=== PATIENT | female | born 1985 | race Caucasian/White ===

== ENCOUNTER 2017-09-22 09:35 | Outpatient (RCR) | payer OTHER, SELFPAY | END 2017-10-04 23:59 | LOC: NS 09:35 | PROVIDERS: Visit Provider Obstetrics & Gynecology | DX: O99.211 Obesity complicating pregnancy, first trimester (principal); Z68.41 Body mass index [BMI] 40.0-44.9, adult; Z71.3 Dietary counseling and surveillance | CPT/HCPCS: 97802 ==

== ENCOUNTER → 2017-10-02 14:24 | Outpatient (CLI) | payer OTHER, SELFPAY ==
[2017-10-02 15:57] LABS: Color, Urine Yellow (Yellow); Glucose, Dipstick Normal (Normal); Ketone-Dipstick 50 mg/dl (Negative); Leukocyte Esterase-Dipstick Negative /ul (Negative); Nitrite-Dipstick Negative (Negative); Occult Blood-Urine Negative /ul (Negative); Protein-Dipstick Negative (Negative); Specific Gravity, Urine 1.025 (1.002-1.030); Urine Bilirubin Dipstick Negative (Negative); Urine Clarity Clear (Clear); Urine Urobilinogen Normal (Normal)
[2017-10-02 15:59] LABS: Absolute Lymphocyte Count 1.17 X10^3/ul (0.83-4.51); Absolute Neutrophil Count 3.8 X10^3/uL (2.0-7.7); Basophil# 0.01 X10^3/uL; Basophil% 0.2 % (0-1); Eosinophil# 0.16 X10^3/uL; Eosinophils% 2.9 % (0-5); Hematocrit 41.3 % (37-47); Hemoglobin 13.7 g/dl (12.0-15.0); Lymphocyte # 1.17 X10^3/ul (4.0); Lymphocyte % 21.2 % (19-41); Mean Corp Hgb Conc 33.2 g/gl (32-36); Mean Corpuscular Hgb 30.3 pg (27.0-32.0); Mean Corpuscular Volume 91.4 fL (81-99); Mean Platelet Vol. 10.1 fl (6.2-12.0); Monocyte# 0.36 X10^3/uL; Monocyte% 6.5 % (0-10); Neutrophil # 3.82 X10^3/uL (2.7-7.7); Platelet Count 311 K/mm3 (150-450); RBC Distribution Width CV 13.1 % (11.6-14.6); Red Blood Count 4.52 M/mm3 (4.2-5.4); White Blood Count 5.5 K/mm3 (4.4-11.0)
[2017-10-02 16:03] LABS: POSITIVE COUNT NO; POSITIVE DIFFERENTIAL NO; POSITIVE MORPHOLOGY NO
[2017-10-02 16:20] LABS: Thyroid Stim Hormone (TSH) 1.38 uIU/mL (0.358-3.74)
[2017-10-02 17:02] LABS: HIV - WCH Non-Reactive (Nonreactive); Rubella IgG 19.7 IU/mL
[2017-10-04 07:47] LABS: HEPATITIS B SURFACE AG Negative (Negative); Hep C Antibodies 0.1 s/co ratio (0.0-0.9)
[2017-10-06 03:55] LABS: Prenatal RPR NONREACTIVE (NONREACTIVE)
== END ==
PROVIDERS: Visit Provider Obstetrics & Gynecology
DX: Z34.81 Encounter for supervision of other normal pregnancy, first trimester (principal); Z3A.00 Weeks of gestation of pregnancy not specified
CPT/HCPCS: 36415; 81002; 83036; 84443; 85025; 86703; 86762; 86803; 87340

== ENCOUNTER 2017-10-20 10:32 | Outpatient (RCR) | payer OTHER, SELFPAY | END 2017-11-01 23:59 | LOC: NS 10:32 | PROVIDERS: Visit Provider Obstetrics & Gynecology | DX: O99.211 Obesity complicating pregnancy, first trimester (principal); Z68.41 Body mass index [BMI] 40.0-44.9, adult; Z71.3 Dietary counseling and surveillance | CPT/HCPCS: 97803 ==

== ENCOUNTER → 2017-11-06 10:49 | Outpatient (CLI) | payer OTHER, SELFPAY | PROVIDERS: Visit Provider Obstetrics & Gynecology | DX: Z34.82 Encounter for supervision of other normal pregnancy, second trimester (principal); Z3A.00 Weeks of gestation of pregnancy not specified | CPT/HCPCS: 36415 ==

== ENCOUNTER → 2018-01-08 14:17 | Outpatient (CLI) | payer OTHER, SELFPAY ==
[2018-01-08 15:50] LABS: Glucose Challenge Gest 1H 50g 125 mg/dL (70-140)
[2018-01-08 15:52] LABS: Hematocrit 37.4 % (37-47); Hemoglobin 12.7 g/dl (12.0-15.0); Mean Corpuscular Volume 88.4 fL (81-99); Mean Platelet Vol. 10.2 fl (6.2-12.0); Platelet Count 311 K/mm3 (150-450); RBC Distribution Width CV 13.2 % (11.6-14.6); RBC Distribution Width SD 42.3 fl (35.1-43.9); Red Blood Count 4.23 M/mm3 (4.2-5.4); White Blood Count 6.8 K/mm3 (4.4-11.0)
[2018-01-08 16:03] LABS: Scan Indicated on CBC? Y/N NO
== END ==
PROVIDERS: Visit Provider Obstetrics & Gynecology
DX: Z34.82 Encounter for supervision of other normal pregnancy, second trimester (principal)
CPT/HCPCS: 36415; 82950; 85027

== ENCOUNTER → 2018-03-26 15:53 | Outpatient (CLI) | payer OTHER, SELFPAY ==
[2018-03-26 17:26] LABS: Protein, Urine (Random) 29.5 mg/dL (<11.9); Protein:Creat Ratio 116 mg/g CRE (0-200)
== END ==
PROVIDERS: Visit Provider Obstetrics & Gynecology
DX: Z34.83 Encounter for supervision of other normal pregnancy, third trimester (principal)
CPT/HCPCS: 82570; 84156

== ENCOUNTER → 2018-04-17 16:15 | Outpatient (CLI) | payer OTHER, SELFPAY ==
[2018-04-17 16:30] LABS: Hematocrit 37.2 % (37-47); Hemoglobin 12.4 g/dl (12.0-15.0); Mean Corp Hgb Conc 33.3 g/gl (32-36); Mean Corpuscular Hgb 29.5 pg (27.0-32.0); Mean Corpuscular Volume 88.6 fL (81-99); Platelet Count 282 K/mm3 (150-450); RBC Distribution Width CV 14.5 % (11.6-14.6); RBC Distribution Width SD 46.8 fl (35.1-43.9); White Blood Count 6.8 K/mm3 (4.4-11.0)
[2018-04-17 16:33] LABS: Scan Indicated on CBC? Y/N NO
[2018-04-17 16:35] LABS: Color, Urine Yellow (Yellow); Glucose, Dipstick Normal (Normal); Ketone-Dipstick 5 mg/dl (Negative); Leukocyte Esterase-Dipstick Negative /ul (Negative); Nitrite-Dipstick Negative (Negative); Occult Blood-Urine Negative /ul (Negative); Protein-Dipstick 30 mg/dl (Negative); Specific Gravity, Urine 1.015 (1.002-1.030); Urine Bilirubin Dipstick Negative (Negative); Urine Clarity Clear (Clear); Urine Urobilinogen Normal (Normal); Urine pH 6.5 (5.0 - 8.0)
[2018-04-17 16:46] LABS: AST(SGOT) 59 U/L (15-37); Alanine Aminotransfer ALT/SGPT 41 U/L (13-56); Albumin, Serum 2.3 g/dL (3.2-5.0); Alkaline Phosphatase 224 U/L (45-117); Bilirubin, Direct 0.07 mg/dL (0.00-0.30); Creatinine, Serum 0.58 mg/dL (0.55-1.02); EST Glomerular Filtration Rate 125 mL/min (>60); Est Glom Filt Rate - Afr Amer 151 mL/min (>60); Globulin 4.2 g/dL (2.2-4.2); Protein, Total 6.5 g/dL (6.4-8.2)
[2018-04-17 16:53] LABS: Protein, Urine (Random) 21.2 mg/dL (<11.9); Protein:Creat Ratio 186 mg/g CRE (0-200)
== END ==
PROVIDERS: Visit Provider Obstetrics & Gynecology
DX: O13.9 Gestational [pregnancy-induced] hypertension without significant proteinuria, unspecified trimester (principal)
CPT/HCPCS: 36415; 80076; 81002; 82565; 82570; 84156; 85027

== ENCOUNTER 2018-04-17 17:06 | Inpatient (IN) | payer OTHER, SELFPAY ==
[2018-04-17] VITALS (27 sets, daily range): BP systolic 102–189; BP diastolic 56–102; PULSE 94–151; RESP 16–20; TEMP 36.7–37.6; O2SAT 95–99; BMI 48.9
--- NOTE | 2018-04-17 17:34 | PCM.DCCSEC ---
Discharge Diet: No Restrictions Discharge Activity: May not drive while taking narcotic pain medications., May Shower, May Take a Tub Bath Return to work on:: 06/04/18 May resume sexual activity in: 4-6 weeks Lifting Restrictions: 20 pounds Additional Activity Instructions:: Nothing in the vagina for 4-6 weeks. You may return to work/school in 6-8 weeks. Change Dressing in (Days):: 4 Remove Dressing in (days):: 4 Cleanse incision/area with: Soap & Water, Keep Dressing Clean & Dry Additional Instructions: If you experience any of the following, contact your healthcare provider. Bleeding that soaks a pad every hour for 2 hours Fever 100.4 or higher Unrelieved incision or abdominal pain Swelling, redness, discharge or bleeding from your incision Problems urinating (including inability to urinate or burning while urinating). Visual changes Severe headache Flu-like symptoms Pain or redness in one of both of your breasts Pain, warmth, tenderness or swelling in your legs, especially the calf area Frequent nausea and vomiting Symptoms of depression or anxiety If you experience any of the following, call 911 or go to the nearest Emergency Room. Chest pain Problems breathing Seizure activity Partial or complete paralysis of a body part, slurred speech, weakness or drooping of the face, or a sudden inability to walk or hold your balance Allergies/Adverse Reactions: Allergies bacitracin [From Neosporin ([id number])] Allergy (Verified 04/17/18 16:14) Hives neomycin [From Neosporin ([id number])] Allergy (Verified 04/17/18 16:14) Hives polymyxin B [From Neosporin ([id number])] Allergy (Verified 04/17/18 16:14) Hives Medications to take at Discharge Hydrocodone Bitart/Apap 5-325 [[place] 5/325] 1 - 2 tablet PO Q4H PRN PRN #20 tablet 08/08/16 Metformin HCl 08/08/16 Naproxen [Naprosyn] 500 mg PO BID #20 tablet 08/08/16 Smz/Tmp Ds [Bactrim Ds] 1 tablet PO BID #6 tablet 08/08/16 Tamsulosin HCl [Flomax] 0.4 mg PO DAILY #1 capsule 08/08/16 Cetirizine HCl [Zyrtec] 10 mg PO 04/17/18 Docusate Sodium [Colace] 100 mg PO BID #30 cap 04/17/18 Naproxen [Naprosyn] 250 - 500 mg PO TID PRN #30 tab 04/17/18 Omeprazole 04/17/18 Oxycodone [Oxyir] 5 - 10 mg PO Q6H PRN PRN 7 Days #20 tablet 04/17/18 Vit No.130/Iron/FA [ Vitamins] 1 each PO 04/17/18 Ranitidine 04/17/18 The following prescriptions were given: Oxycodone [Oxyir] 5 - 10 mg PO Q6H PRN PRN 7 Days #20 tablet PRN Reason: Mod-Severe Pain (4-10) Docusate Sodium [Colace] 100 mg PO BID #30 cap Naproxen [Naprosyn] 250 - 500 mg PO TID PRN #30 tab PRN Reason: Mild-Mod Pain (1-01/11) Follow-Up: Call to make an appointment with your doctor for an incision check in 1-2 weeks. You will also need a 6 week post- follow up appointment. Test results from this visit will be discussed in further detail at your follow-up appointment, if applicable. Please Follow Up With: Chrissie Galan MD - [phone] When: Call to make an appointment for an incision check in 2 weeks. Primary Care Physician: Care Physician,No Primary [Primary Care Provider] - Proposed Discharge Date: 04/20/18
--- NOTE | 2018-04-17 17:39 | DCINST_ITS ---
Discharge Diet: No Restrictions Discharge Activity: May not drive while taking narcotic pain medications., May Shower, May Take a Tub Bath Return to work on:: 06/04/18 May resume sexual activity in: 4-6 weeks Lifting Restrictions: 20 pounds Additional Activity Instructions:: Nothing in the vagina for 4-6 weeks. You may return to work/school in 6-8 weeks. Change Dressing in (Days):: 4 Remove Dressing in (days):: 4 Cleanse incision/area with: Soap & Water, Keep Dressing Clean & Dry Additional Instructions: If you experience any of the following, contact your healthcare provider. * Bleeding that soaks a pad every hour for 2 hours * Fever 100.4 or higher * Unrelieved incision or abdominal pain * Swelling, redness, discharge or bleeding from your incision * Problems urinating (including inability to urinate or burning while urinating) . * Visual changes * Severe headache * Flu-like symptoms * Pain or redness in one of both of your breasts * Pain, warmth, tenderness or swelling in your legs, especially the calf area * Frequent nausea and vomiting * Symptoms of depression or anxiety If you experience any of the following, call 911 or go to the nearest Emergency Room. * Chest pain * Problems breathing * Seizure activity * Partial or complete paralysis of a body part, slurred speech, weakness or drooping of the face, or a sudden inability to walk or hold your balance Allergies/Adverse Reactions: Allergies bacitracin [From Neosporin ([id number])] Allergy (Verified 04/17/18 16:14) Hives neomycin [From Neosporin ([id number]-[id number])] Allergy (Verified 04/17/18 16:14) Hives polymyxin B [From Neosporin ([id number]-kmf-[id number])] Allergy (Verified 04/17/18 16:14) Hives Medications to take at Discharge Hydrocodone Bitart/Apap 5-325 [[place] 5/325] 1 - 2 tablet PO Q4H PRN PRN #20 tablet 08/08/16 Metformin HCl 08/08/16 Naproxen [Naprosyn] 500 mg PO BID #20 tablet 08/08/16 Smz/Tmp Ds [Bactrim Ds] 1 tablet PO BID #6 tablet 08/08/16 Tamsulosin HCl [Flomax] 0.4 mg PO DAILY #1 capsule 08/08/16 Cetirizine HCl [Zyrtec] 10 mg PO 04/17/18 Docusate Sodium [Colace] 100 mg PO BID #30 cap 04/17/18 Naproxen [Naprosyn] 250 - 500 mg PO TID PRN #30 tab 04/17/18 Omeprazole 04/17/18 Oxycodone [Oxyir] 5 - 10 mg PO Q6H PRN PRN 7 Days #20 tablet 04/17/18 Vit No.130/Iron/FA [ Vitamins] 1 each PO 04/17/18 Ranitidine 04/17/18 The following prescriptions were given: Oxycodone [Oxyir] 5 - 10 mg PO Q6H PRN PRN 7 Days #20 tablet PRN Reason: Mod-Severe Pain (4-06/13) Docusate Sodium [Colace] 100 mg PO BID #30 cap Naproxen [Naprosyn] 250 - 500 mg PO TID PRN #30 tab PRN Reason: Mild-Mod Pain (1-01/11) Follow-Up: Call to make an appointment with your doctor for an incision check in 1-2 weeks. You will also need a 6 week post- follow up appointment. Test results from this visit will be discussed in further detail at your follow- up appointment, if applicable. Please Follow Up With: Chrissie Galan MD - [phone] When: Call to make an appointment for an incision check in 2 weeks. Primary Care Physician: Care Physician,No Primary [Primary Care Provider] - Proposed Discharge Date: 04/20/18
[2018-04-17 17:49] LABS: Absolute Lymphocyte Count 1.21 X10^3/ul (0.83-4.51); Absolute Neutrophil Count 4.5 X10^3/uL (2.0-7.7); Basophil# 0.01 X10^3/uL; Basophil% 0.2 % (0-1); Eosinophil# 0.11 X10^3/uL; Eosinophils% 1.7 % (0-5); Hematocrit 38.1 % (37-47); Hemoglobin 12.9 g/dl (12.0-15.0); Lymphocyte # 1.21 X10^3/ul (4.0); Lymphocyte % 18.6 % (19-41); Mean Corp Hgb Conc 33.9 g/gl (32-36); Mean Corpuscular Hgb 29.7 pg (27.0-32.0); Mean Corpuscular Volume 87.8 fL (81-99); Mean Platelet Vol. 10.4 fl (6.2-12.0); Monocyte# 0.69 X10^3/uL; Monocyte% 10.6 % (0-10); Neutrophil # 4.49 X10^3/uL (2.7-7.7); Neutrophil % 68.9 % (47-70); Platelet Count 315 K/mm3 (150-450); RBC Distribution Width CV 14.5 % (11.6-14.6); RBC Distribution Width SD 46.6 fl (35.1-43.9); Red Blood Count 4.34 M/mm3 (4.2-5.4); White Blood Count 6.5 K/mm3 (4.4-11.0)
[2018-04-17 17:52] LABS: POSITIVE COUNT NO; POSITIVE DIFFERENTIAL NO; POSITIVE MORPHOLOGY NO
[2018-04-17] MEDS: Lactated Ringers 1,000 ML 150 ML IV (17:58)
[2018-04-17] MEDS: Sodium Citrate/Citric Acid 30 ML UDC PO (17:58)
[2018-04-17] MEDS: Cefazolin 2 GM in 0.9% Normal Saline 100 ML IV (18:08)
[2018-04-17] MEDS: Oxytocin 30 units/NS 500 ml 30 UNITS/500 ML IV.SOLN 167 UNITS IV ×2 (18:39→22:50)
[2018-04-17] MEDS: Ketorolac 30 MG/ML Syringe IV (19:09)
--- NOTE | 2018-04-17 19:11 | OP.PCM_ITS ---
Operative Report Date of Procedure: 04/17/18 PROCEDURE: Repeat C section. Preoperative diagnosis: 38 2/7 wk EGA Prior C section, planned repeat C section PIH with worsening blood pressures Postop diagnosis: 38 2/7 wk EGA Prior C section, planned repeat C section PIH with worsening blood pressures. Anesthesia: Spinal, Fab Camejo MD and Lake Price MD Surgeon: Chrissie Galan MD [employer] Consultant: JACLYN Torres EBL 800 cc Complications: none Drains: Rice draining clear yellow appearing urine Fluids: replacement LR Findings: At amniotomy, clear fluid was noted. Henriquez viable male in vertex presentation. Apgars 9/9, Baby weight: 7# 6 oz There was a normal appearing uterus, fallopian tubes and ovaries bilaterally. There were minimal filmy adhesions between the bladder and lower uterine segment. PATH: Routine cord blood for typing collected. Routine cord gases were sent. Narrative account: After the risks, benefits and alternatives of the procedure were reviewed with the patient, informed consent was obtained. The patient was taken to the Operating room with an IV running, and placed in a seated position on the operating table for placement of the spinal. Once the spinal had been administered, she was briefly frog-legged for Rice catheter placement, and then repositioned to dorsal supine position with leftward displacement of the uterus, and prepped and draped in the usual sterile fashion. Once the spinal was deemed adequate, a Pfannenstiel skin incision was created using the knife ( through the prior skin incision scar). The incision was carried down to the rectus fascia using the knife. The fascia was nicked in the midline. The fascial incision was extended bilaterally using curved Torres scissors. The superior aspect of the fascial incision was grasped with Jose clamps and tented up and the underlying rectus abdominal muscles were dissected free. In a similar manner, the inferior aspect of the facial incision was grasped with Jose clamps tented up and the underlying rectus abdominal muscles were dissected free. The rectus abdominis muscles were in the midline and the peritoneum was identified and entered by blunt dissection high in the incision. The peritoneum was stretched laterally and a bladder blade was inserted. A bladder flap was created along the lower uterine segment with Metzenbaum scissors . The uterine incision was then created using Metzenbaum scissors. The operators fingertips were used to extend the uterine incision by blunt dissection in a caudad- cephalad orientation . Clear fluid was noted at amniotomy. The vertex was then delivered atraumatically through the incision. The OP and nares were bulb suctioned on the abdomen. The shoulders delivered easily . The cord clamped x two and cut. And the infant was handed off to the nurse awaiting delivery after briefly showing him to his parents. The baby had a spontaneous, vigorous cry. The placenta was then delivered. The uterus was exteriorized and cleared of clots and debris . The uterine incision was repaired with 1 Vicryl in a running locked fashion. A second imbricating layer was then placed, using 1 Monocryl in running nonlocked fashion. Bovie cautery was used to treat any bleeding areas . Excellent hemostasis was noted. At this point the uterus was returned to the abdominal cavity. The gutters were cleared of clots and debris and the incision at the uterus was inspected. Kalpana was applied along the entire incision for continued hemostasis. Excellent hemostasis was noted. The peritoneal edges were reapproximated in the midline with a continuous suture of 1 Vicryl. Kalpana was applied to this layer. Excellent hemostasis was noted at the subfascial space Kalpana was dusted over this layer as well. The fascia was closed in a running nonlocked fashion with a Stratofix. The Subcutaneous fatty tissue was Bovie cauterized as needed for hemostasis. Kalpana was liberally dusted at this layer to prevent seroma formation. This layer was then reapproximated in a two layer closure of running 3-0 Vicryl to eliminate space. The skin edges were closed in a Subcuticular stitch of 4-0 Monocryl. The incision was cleansed. Cavilon, Steristrips, and Mepilex dressing were applied to the skin . The patient was then transferred to the recovery room bed in stable condition after tolerating the procedure well. Sponge, lap, needle and instrument counts correct times two. Medications given preop and intraoperatively included: Ancef given area field person to the operating room. The patient also received Pitocin given IV after cord clamp , and Toradol 30 mg IV times one. For a complete listing of medications given preop and intraoperatively, please see the anesthesia record.
[2018-04-17] MEDS: Lactated Ringers 1,000 ML 100 ML IV ×2 (19:32→23:50)
--- NOTE | 2018-04-17 21:05 | PCM.PN.BLA ---
Progress Note Postop check. Multiple family members in room. Johana holding baby. AVSS BPs mostly 130-140/80s. Urine clear yellow, esther comfortable. NAD Conversant Fundus firm per RN. Several small clots passed and will monitor. A/P: PIH. BPs improved since delivery Continue care. Add LFTs to AM lab draw as AST elevated preop today. All other PIH labs WNL Continue care.
[2018-04-17] MEDS: Carboprost Tromethamine 250 MCG/ML Ampul IM (21:15)
--- NOTE | 2018-04-17 21:18 | NURSING ---
Dr Galan at bedside to evaluate bleeding at this time. Hemabate given at 2115 IM in right thigh.
--- NOTE | 2018-04-17 21:21 | NURSING ---
remains at bedside 12 lead EKG ordered and labetalol 20mg iv ordered x1.
[2018-04-17] MEDS: Labetalol 100 MG/20 ML Vial 20 MG IV (21:31)
[2018-04-17] MEDS: proMETHazine 25 MG/ML Syringe 12.5 MG IV (21:37)
[2018-04-17] MEDS: miSOPROStol 200 MCG Tablet 1000 MCG RECTAL (21:49)
[2018-04-17 22:25] LABS: Absolute Neutrophil Count 8.8 X10^3/uL (2.0-7.7); Basophil# 0.01 X10^3/uL; Basophil% 0.1 % (0-1); Eosinophil# 0.12 X10^3/uL; Eosinophils% 1.1 % (0-5); Hematocrit 31.8 % (37-47); Hemoglobin 10.6 g/dl (12.0-15.0); Lymphocyte % 11.8 % (19-41); Mean Corp Hgb Conc 33.3 g/gl (32-36); Mean Corpuscular Hgb 29.5 pg (27.0-32.0); Mean Corpuscular Volume 88.6 fL (81-99); Mean Platelet Vol. 10.2 fl (6.2-12.0); Monocyte# 0.76 X10^3/uL; Monocyte% 6.9 % (0-10); Neutrophil # 8.77 X10^3/uL (2.7-7.7); Neutrophil % 79.9 % (47-70); POSITIVE COUNT NO; POSITIVE DIFFERENTIAL NO; POSITIVE MORPHOLOGY NO; Platelet Count 263 K/mm3 (150-450); RBC Distribution Width CV 14.4 % (11.6-14.6); RBC Distribution Width SD 46.5 fl (35.1-43.9); Red Blood Count 3.59 M/mm3 (4.2-5.4)
--- NOTE | 2018-04-17 22:25 | PCM.PN.BLA ---
Progress Note PROGRESS NOTE Postop check after family out of room. BP high at 169/86 pulse 140-150s A/P: HTN and tachycardia -- EKG ordered. -- Labetolol 20 mg IV x one to be given PROGRESS NOTE / POSTOPERATIVE HEMORRHAGE 2/2 uterine atony. Called back to room with inc vaginal bleeding. Hemabate ordered, given and phenergan for nausea. EKG with current pulse 106 Sinus tachycardia (s/p labetalol 20 mg IV x one). EXAM: Alert, cool cloths on forehead and around neck. Pelvic exam: clots at lower uterine segment. Bedside sono with clot noted at fundus. Fundus firm at approx umbilicus, but with continued bleeding, passing clots. Cytotec 1000 mg CA x one Bimanual exam and bedside curettage to evacuate uterus. Uterine tamponade balloon placed to fundus and 420 cc NS used to inflate under guidance. Additional small clots extruded from lower uterine segment and removed, set aside EBL by weight 2018 cc + 800 EBL in OR = 2818 cc EBL total CBC at 2215- hgb 10.6 g/dl. (dec from 12. g/dl preop) EXAM: VSS very minimal vaginal bleeding noted. Tamponade balloon in place. Johana alert, still comfortable with epidural. Conversant, NAD Pale appearing. A/P: Postoperative hemorrhage due to uterine atony. --s/p Pitocin, Hemabate, Cytotec. S/P bedside banjo curettage. --Uterine tamponade balloon in place. --repeat CBC in am. consider transfusion vs expectant management , iron bid. Continue care. Close observation of bleeding.
[2018-04-17 22:32] LABS: Prothrombin Time (Protime)PT. 12.9 SECONDS (11.7-14.9)
[2018-04-17 22:33] LABS: Partial Thromboplast Time 28.3 Seconds (24.1-36.2)
[2018-04-17 22:41] LABS: ALB/GLOB Ratio 0.5 RATIO (0.9-2.4); AST(SGOT) 52 U/L (15-37); Alanine Aminotransfer ALT/SGPT 35 U/L (13-56); Albumin, Serum 1.8 g/dL (3.2-5.0); Alkaline Phosphatase 169 U/L (45-117); Anion Gap 12 (5-15); BUN 11 mg/dL (7-18); BUN/Creat Ratio 18.9 RATIO (10-20); Calcium,Total 7.6 mg/dL (8.5-10.1); Chloride 116 mmol/L (98-107); Creatinine, Serum 0.58 mg/dL (0.55-1.02); EST Glomerular Filtration Rate 125 mL/min (>60); Est Glom Filt Rate - Afr Amer 151 mL/min (>60); Estimated Creatinine Clearance 121.82 ml/min; Globulin 3.3 g/dL (2.2-4.2); Glucose 101 mg/dL (74-106); Protein, Total 5.1 g/dL (6.4-8.2); Sodium Level 148 mmol/L (136-145)
[2018-04-17 23:11] LABS: Fibrinogen 312 mg/dl (203-444)
[2018-04-18] VITALS (12 sets, daily range): BP systolic 117–140; BP diastolic 67–80; PULSE 100–128; RESP 16–20; TEMP 36.9–37.4; O2SAT 96–100
--- NOTE | 2018-04-18 02:26 | PCM.PN.BLA ---
Progress Note PROGRESS NOTE. ALert Blood drawn for repeat CBC AFEB Pulse 100-112. BP 120-140s/70-86 NAD. States some cramping. Urine output good. Toradol OK EXAM: Minimal blood on peripad. No inc VB into bag from uterine tamponade balloon 120 cc removed from balloon. A/P; repeat C/S Postpatum hemorrhage 2/2 uterine atony. S/P Pitocin, bimanual massage. Hemabate Bedside banjo curettage. cytotec 1000 mcg RI. Uterine balloon. Stable. Reassess later with repeat CBC. Balloon removal as able.
[2018-04-18] MEDS: Ketorolac 30 MG/ML Syringe IV ×4 (02:33→20:43)
--- NOTE | 2018-04-18 02:42 | NURSING ---
Dr. Galan at bedside 0215- 120 cc removed from balloon catheter. VS and bleeding stable. 300 cc remains in balloon catheter. Plan will be per Dr. Galan to return in a couple hours to take more saline out of balloon. Output in page 200 cc in 2 hours- VO per Dr. Galan for toradol at this time.
[2018-04-18 02:48] LABS: Hematocrit 28.6 % (37-47); Hemoglobin 9.7 g/dl (12.0-15.0); Mean Corp Hgb Conc 33.9 g/gl (32-36); Mean Corpuscular Hgb 30.1 pg (27.0-32.0); Mean Corpuscular Volume 88.8 fL (81-99); Mean Platelet Vol. 10.6 fl (6.2-12.0); Platelet Count 279 K/mm3 (150-450); RBC Distribution Width CV 14.2 % (11.6-14.6); RBC Distribution Width SD 44.6 fl (35.1-43.9); Red Blood Count 3.22 M/mm3 (4.2-5.4); White Blood Count 13.4 K/mm3 (4.4-11.0)
[2018-04-18 02:49] LABS: Scan Indicated on CBC? Y/N NO
--- NOTE | 2018-04-18 04:40 | NURSING ---
see hemorrhage checklist for detailed interventions.
--- NOTE | 2018-04-18 05:12 | PCM.PN.BLA ---
Progress Note PROGRESS NOTE SItting up in bed, holding baby AFEB Temp 99 GEN A and O. NAD PERINEUM: minimal bleeding noted. 240 cc withdrawn from balloon. A/P: pp hemorrhage, uterine atony. Acute blood loss anemia -- Hgb last 9.7 g/dl. CBC next approx 6 am. -- Continue care. Iron bid
--- NOTE | 2018-04-18 05:59 | NURSING ---
0500-Dr Galan into pt's room to assess pt, at this time EB removed and additional 120cc of fluids from she, pt tolerated well and denies any further needs at this time.
--- NOTE | 2018-04-18 06:11 | PCM.PN.OB ---
Subjective: POD#1 Repeat C/S. 38 2/7 wk PIH, with worsening BPs. Doing OK. No inc vaginal bleeding reported with deflation of the uterine tamponade balloon. Sitting up in bed holding sleeping baby. Not nursing well yet. Minimal pain and cramping. - Physical Exam General: Alert, Oriented x3, Cooperative, No apparent distress HEENT: Atraumatic Neck: Supple Abdomen: Soft - Fundus firm at 3 cm inferior to umbilicus. NT Skin: Incision - Mepilex dressing CDI. no shadow drainage. Perineum with minimal blood noted. No clots. Uterine tamponade balloon deflated and removed. Bleeding minimal Neurological: Cranial nerves II-XII grossly intact Psych/Mental Status: Normal Affect Vital Signs Temp Pulse Resp BP Pulse Ox 99.3 F H 117 H 16 133/80 H 98 04/18/18 04:00 04/18/18 04:00 04/18/18 04:00 04/18/18 04:00 04/18/18 04:00 Oxygen Delivery Method Room Air Weight: 133.356 kg Body Mass Index (BMI) 48.9 Intake and Output for Last 24 Hours 18 04/17/18 04/18/18 23:59 23:59 23:59 Intake Total 2740 / 2740 750 / 750 Output Total 500 / 500 Balance 2240 / 2240 750 / 750 Laboratory Tests Past 24 Hrs 04/17/18 04/17/18 04/17/18 17:25 17:25 17:25 WBC 6.5 RBC 4.34 Hgb 12.9 Hct 38.1 MCV 87.8 MCH 29.7 MCHC 33.9 RDW 14.5 RDW Differential 46.6 H Plt Count 315 MPV 10.4 Immature Gran % (Auto) 0.000 Neut % (Auto) 68.9 Lymph % (Auto) 18.6 L [place]bour % (Auto) 10.6 H Eos % (Auto) 1.7 Baso % (Auto) 0.2 Absolute Neuts (auto) 4.5 Absolute Lymphs (auto) 1.21 Total Counted Not Reportable PT INR APTT Fibrinogen Sodium Potassium Chloride Carbon Dioxide Anion Gap BUN Creatinine Estim Creat Clear Calc Est GFR (MDRD) Af Amer Est GFR (MDRD) Non-Af BUN/Creatinine Ratio Glucose Calcium Total Bilirubin AST ALT Alkaline Phosphatase Total Protein Albumin Globulin Albumin/Globulin Ratio Blood Type O POSITIVE Antibody Screen NEGATIVE Crossmatch See Detail 04/17/18 04/17/18 04/17/18 22:15 22:15 22:15 WBC 11.0 RBC 3.59 L Hgb 10.6 L Hct 31.8 L MCV 88.6 MCH 29.5 MCHC 33.3 RDW 14.4 RDW Differential 46.5 H Plt Count 263 MPV 10.2 Immature Gran % (Auto) 0.200 Neut % (Auto) 79.9 H Lymph % (Auto) 11.8 L [place] % (Auto) 6.9 Eos % (Auto) 1.1 Baso % (Auto) 0.1 Absolute Neuts (auto) 8.8 H Absolute Lymphs (auto) 1.30 Total Counted Not Reportable PT 12.9 INR 1.0 APTT 28.3 Fibrinogen Sodium 148 H Potassium 4.0 Chloride 116 H Carbon Dioxide 20.0 L Anion Gap 12 BUN 11 Creatinine 0.58 Estim Creat Clear Calc 121.82 Est GFR (MDRD) Af Amer 151 Est GFR (MDRD) Non-Af 125 BUN/Creatinine Ratio 18.9 Glucose 101 Calcium 7.6 L Total Bilirubin 0.20 AST 52 H ALT 35 Alkaline Phosphatase 169 H Total Protein 5.1 L Albumin 1.8 L Globulin 3.3 Albumin/Globulin Ratio 0.5 L Blood Type Antibody Screen Crossmatch 04/17/18 04/18/18 22:15 02:10 WBC 13.4 H RBC 3.22 L Hgb 9.7 L Hct 28.6 L MCV 88.8 MCH 30.1 MCHC 33.9 RDW 14.2 RDW Differential 44.6 H Plt Count 279 MPV 10.6 Immature Gran % (Auto) Neut % (Auto) Lymph % (Auto) Barbour % (Auto) Eos % (Auto) Baso % (Auto) Absolute Neuts (auto) Absolute Lymphs (auto) Total Counted PT INR APTT Fibrinogen 312 Sodium Potassium Chloride Carbon Dioxide Anion Gap BUN Creatinine Estim Creat Clear Calc Est GFR (MDRD) Af Amer Est GFR (MDRD) Non-Af BUN/Creatinine Ratio Glucose Calcium Total Bilirubin AST ALT Alkaline Phosphatase Total Protein Albumin Globulin Albumin/Globulin Ratio Blood Type Antibody Screen Crossmatch Medical Necessity - Tobacco Use Smoking Status: Never smoker Assessment/Plan POD#1 38 2/7 wk PIH prior C section , planned repeat C/S. Postoperative hemorrhage 2/2 uterine atony. Stable after interventions: Pitocin, Hemabate, Cytotec 1000 mcg SC x one. Bedside curettage with banjo and uterine tamponade balloon placement. Balloon removed this am. Stable. Minimal bleeding. Acute blood loss anemia. clinically stable at present with pulse in 100-117 range Good urine output. iron bid serial CBCs Assess for transfusion vs expectant mgmt typed and crossed for two units pRBCs Inc diet and activity as tolerated. IV to S/L for continued toradol today D/C page for voiding trial Continue care.
[2018-04-18 06:28] LABS: Hematocrit 26.9 % (37-47); Hemoglobin 8.9 g/dl (12.0-15.0); Mean Corp Hgb Conc 33.1 g/gl (32-36); Mean Corpuscular Hgb 29.4 pg (27.0-32.0); Mean Corpuscular Volume 88.8 fL (81-99); Platelet Count 244 K/mm3 (150-450); RBC Distribution Width CV 14.5 % (11.6-14.6); RBC Distribution Width SD 46.7 fl (35.1-43.9); Red Blood Count 3.03 M/mm3 (4.2-5.4); White Blood Count 10.6 K/mm3 (4.4-11.0)
[2018-04-18 06:30] LABS: Scan Indicated on CBC? Y/N NO
[2018-04-18 07:00] LABS: AST(SGOT) 51 U/L (15-37); Alanine Aminotransfer ALT/SGPT 32 U/L (13-56); Albumin, Serum 1.8 g/dL (3.2-5.0); Alkaline Phosphatase 155 U/L (45-117); Bilirubin, Direct 0.13 mg/dL (0.00-0.30); Globulin 3.3 g/dL (2.2-4.2); Protein, Total 5.1 g/dL (6.4-8.2)
--- NOTE | 2018-04-18 07:40 | MDS.RN ---
0630- EB into pt room, removed an additional 120 cc of fluid from she and then dc'd balloon entirely. Pt tolerated well.
--- NOTE | 2018-04-18 08:01 | NURSING ---
pt up in chair tolerating well
[2018-04-18] MEDS: Lactated Ringers 1,000 ML 100 ML IV (08:19)
[2018-04-18] MEDS: Ferrous Gluconate 325 MG Tablet PO ×2 (09:47→17:42)
--- NOTE | 2018-04-18 11:40 | NURSING ---
pt up walking in smith then to chair
[2018-04-18] MEDS: Prenatal Vits Tablet 1 TABLET PO (16:20)
[2018-04-18] MEDS: Senna/Docusate Sodium 1 Tablet PO (17:42)
[2018-04-18] MEDS: 0.9% Saline Lock 10 ML Syringe IV ×2 (17:45→20:43)
--- NOTE | 2018-04-18 18:17 | NURSING ---
1800 pt oob up to br; page cath dc'ed; convert to SL
[2018-04-18] MEDS: oxyCODONE 5 MG Tablet PO (18:42)
[2018-04-19 02:45] VITALS: BP 135/69; PULSE 110; RESP 18; TEMP 36.3; O2SAT 100
[2018-04-19] MEDS: 0.9% Saline Lock 10 ML Syringe IV ×5 (02:51→22:38)
[2018-04-19] MEDS: Ketorolac 30 MG/ML Syringe IV ×3 (02:51→14:56)
--- NOTE | 2018-04-19 03:30 | NURSING ---
Second void completed, missed hat. Pt felt that bladder emptied completely.
[2018-04-19 06:22] LABS: Hematocrit 21.1 % (37-47); Mean Corp Hgb Conc 33.2 g/gl (32-36); Mean Corpuscular Hgb 30.2 pg (27.0-32.0); Mean Corpuscular Volume 90.9 fL (81-99); Mean Platelet Vol. 10.2 fl (6.2-12.0); Platelet Count 212 K/mm3 (150-450); RBC Distribution Width CV 14.6 % (11.6-14.6); RBC Distribution Width SD 46.3 fl (35.1-43.9); Red Blood Count 2.32 M/mm3 (4.2-5.4); White Blood Count 8.9 K/mm3 (4.4-11.0)
[2018-04-19 06:29] LABS: Scan Indicated on CBC? Y/N NO
[2018-04-19] MEDS: oxyCODONE 5 MG Tablet PO ×3 (07:46→17:11)
--- NOTE | 2018-04-19 08:15 | PCM.PN.OB ---
Subjective: She is sore this morning and requests pain medication. OOB and passing flatus. Tolerating a regular diet. Denies heavy lochia. Denies headache, vision changes. Objective: AVSS - vital signs unavailable for review when rounded initially due to computer downtime - Physical Exam General: Alert, Oriented x3, Cooperative, No apparent distress HEENT: Atraumatic, Normocephalic Lungs: Clear to auscultation, Normal air movement Cardiovascular: Regular rate, Regular Rhythm, Normal S1, Normal S2, No murmurs Abdomen: Bowel Sounds Present, Soft, Non Tender, Non-Distended, - - Fundus firm and nontender, incisional dressing c/d/i, Extremities: No Calf Tenderness, - - +2 b/l LE edema Neurological: Neuro grossly intact Psych/Mental Status: Normal Affect, Appropriate, Alert and oriented to time, place, person, mood and affect Vital Signs Temp Pulse Resp BP Pulse Ox 97.6 F L 113 H 18 144/71 H 100 04/19/18 13:19 04/19/18 13:19 04/19/18 13:19 04/19/18 13:19 04/19/18 02:45 Oxygen Delivery Method Room Air Weight: 133.356 kg Body Mass Index (BMI) 48.9 Intake and Output for Last 24 Hours 04/17/18 04/18/18 04/19/18 23:59 23:59 23:59 Intake Total 2740 / 2740 3562 / 3562 Output Total 500 / 500 3450 / 3450 Balance 2240 / 2240 112 / 112 Laboratory Tests Past 24 Hrs 04/19/18 06:10 WBC 8.9 RBC 2.32 L Hgb 7.0 L Hct 21.1 L MCV 90.9 MCH 30.2 MCHC 33.2 RDW 14.6 RDW Differential 46.3 H Plt Count 212 MPV 10.2 Medical Necessity - Tobacco Use Smoking Status: Never smoker Assessment/Plan 33yo P2002 POD#2 s/p RLTCS for gestational HTN complicated by hemorrhage -Labs reviewed - post-op anemia -Rh positive -Routine postop care -CBC in am -
[2018-04-19] MEDS: Ferrous Gluconate 325 MG Tablet PO ×2 (08:24→17:12)
[2018-04-19] MEDS: Senna/Docusate Sodium 1 Tablet PO (08:24)
[2018-04-19 08:30] VITALS: BP 140/84; PULSE 120; RESP 18; TEMP 36.9
[2018-04-19 13:19] VITALS: BP 144/71; PULSE 113; RESP 18; TEMP 36.4
[2018-04-19] MEDS: Prenatal Vits Tablet 1 TABLET PO (14:57)
--- NOTE | 2018-04-19 19:48 | PCM.PN.BLA ---
Progress Note Patient seen, reports feels well overall. Momentary lightheadedness experienced in shower. Denies palpitations, shortness of breath or other lightheadedness. She feels well and energy improved today from yesterday. No prior h/o hypertension outside of and puerperium periods. Notes normal BPS between pregnancies on checks. Reviewed BPs 130s-140s/70s-80s and tachycardia 100s-110s bpm, labs also reviewed. Discussed indication for blood transfusion. At this time, patient opts for observation as feels well overall. Si/sx anemia reviewed. Plan for repeat CBC in am.
[2018-04-19 20:40] VITALS: BP 144/81; PULSE 132; RESP 16; TEMP 37.7
[2018-04-19] MEDS: Naproxen 250 MG Tablet PO (20:47)
[2018-04-19 23:11] LABS: Absolute Lymphocyte Count 0.89 X10^3/ul (0.83-4.51); Absolute Neutrophil Count 6.8 X10^3/uL (2.0-7.7); Eosinophil# 0.13 X10^3/uL; Eosinophils% 1.5 % (0-5); Hematocrit 20.7 % (37-47); Hemoglobin 6.8 g/dl (12.0-15.0); Lymphocyte # 0.89 X10^3/ul (4.0); Lymphocyte % 10.5 % (19-41); Mean Corp Hgb Conc 32.9 g/gl (32-36); Mean Corpuscular Hgb 29.4 pg (27.0-32.0); Mean Corpuscular Volume 89.6 fL (81-99); Mean Platelet Vol. 9.9 fl (6.2-12.0); Monocyte# 0.63 X10^3/uL; Monocyte% 7.4 % (0-10); Neutrophil # 6.82 X10^3/uL (2.7-7.7); Neutrophil % 80.5 % (47-70); POSITIVE COUNT NO; POSITIVE DIFFERENTIAL NO; POSITIVE MORPHOLOGY NO; Platelet Count 245 K/mm3 (150-450); RBC Distribution Width SD 48.8 fl (35.1-43.9); Red Blood Count 2.31 M/mm3 (4.2-5.4); White Blood Count 8.5 K/mm3 (4.4-11.0)
[2018-04-19 23:57] LABS: ALB/GLOB Ratio 0.5 RATIO (0.9-2.4); AST(SGOT) 73 U/L (15-37); Alanine Aminotransfer ALT/SGPT 39 U/L (13-56); Albumin, Serum 1.8 g/dL (3.2-5.0); Alkaline Phosphatase 145 U/L (45-117); Anion Gap 8 (5-15); BUN 10 mg/dL (7-18); BUN/Creat Ratio 16.2 RATIO (10-20); Calcium,Total 7.7 mg/dL (8.5-10.1); Chloride 110 mmol/L (98-107); Creatinine, Serum 0.62 mg/dL (0.55-1.02); EST Glomerular Filtration Rate 117 mL/min (>60); Est Glom Filt Rate - Afr Amer 142 mL/min (>60); Estimated Creatinine Clearance 113.96 ml/min; Globulin 3.9 g/dL (2.2-4.2); Glucose 115 mg/dL (74-106); Protein, Total 5.7 g/dL (6.4-8.2); Sodium Level 141 mmol/L (136-145)
--- NOTE | 2018-04-20 01:00 | PCM.PN.BLA ---
Progress Note SUMMARY OF EVENTS Notified by RN patient with rigors and Tm 101 per patient report. I ordered CBC with diff, CMP, lactate and T&S. On arrival approximately 2200h, patient indicated she took Tylenol, had a sweat and feels temperature reduced. Denies chest pain, shortness of breath, cough, sore throat, ear pain, back pain, calf pain, worsened incisional pain. She is sore. Has been out of bed, ambulating, had two bowel movements today. She otherwise feels okay now. Vitals reviewed, AVSS - on my exam tachycardic to 124 bpm, RRR, LCTAB, no CVA or suprapubic tenderness, abdomen was soft/NT/ND, fundus firm and nontender, incisional dressing removed and incision well approximated without defects/drainage/erythema, lochia scant, +1 b/l LE edema with no calf tenderness and negative Rikki's sign. I advised blood transfusion starting with 1 U PRBC at this time. Reviewed with patient my concern for heart trying to maintain perfusion against elevated blood pressure may increase risk for cardiac strain, as well as evidence that body is in compensatory stage with tachycardia to keep up with bodily energy requirements, as well as role of blood in healing. Johana refused transfusion indicating concern about potential transfusion risks. Labs reviewed and significant for AST/ALT elevation, similar to prior. Otherwise, no leukocytosis, no worsening anemia, Cr normal and lactic acid wnl. I called in the Johana and reviewed results. I recommend observation at this time as no evidence of infection. Patient in agreement. Continue observation.
[2018-04-20 01:10] VITALS: BP 120/72; PULSE 108; RESP 16; TEMP 37.1
[2018-04-20] MEDS: oxyCODONE 5 MG Tablet PO ×3 (06:47→21:54)
--- NOTE | 2018-04-20 08:00 | PCM.PN.OB ---
Subjective: No further issues overnight. Denies additional rigors, nausea, vomiting, fever, chest pain, shortness of breath. + rare lightheadedness. Objective: AVSS - Physical Exam General: Alert, Oriented x3, Cooperative, No apparent distress HEENT: Atraumatic, Normocephalic Lungs: Clear to auscultation, Normal air movement Cardiovascular: Regular rate, Regular Rhythm, Normal S1, Normal S2 Abdomen: Bowel Sounds Present, Soft, Non Tender, Non-Distended, - - Fundus firm and nontender at umbilicus, incision c/d/i and nontender Extremities: No edema, No Calf Tenderness Neurological: Neuro grossly intact Psych/Mental Status: Normal Affect, Appropriate, Alert and oriented to time, place, person, mood and affect Vital Signs Temp Pulse Resp BP Pulse Ox 98.7 F 108 H 16 120/72 100 04/20/18 01:10 04/20/18 01:10 04/20/18 01:10 04/20/18 01:10 04/19/18 02:45 Oxygen Delivery Method Room Air Weight: 133.356 kg Body Mass Index (BMI) 48.9 Intake and Output for Last 24 Hours 04/18/18 04/19/18 04/20/18 23:59 23:59 23:59 Intake Total 3562 / 3562 Output Total 3450 / 3450 Balance 112 / 112 Laboratory Tests Past 24 Hrs 04/19/18 04/19/18 04/19/18 22:50 22:50 22:50 WBC 8.5 RBC 2.31 L Hgb 6.8 L Hct 20.7 L MCV 89.6 MCH 29.4 MCHC 32.9 RDW 15.0 H RDW Differential 48.8 H Plt Count 245 MPV 9.9 Immature Gran % (Auto) 0.100 Neut % (Auto) 80.5 H Lymph % (Auto) 10.5 L Woodson % (Auto) 7.4 Eos % (Auto) 1.5 Baso % (Auto) 0.0 Absolute Neuts (auto) 6.8 Absolute Lymphs (auto) 0.89 Total Counted Not Reportable Sodium 141 Potassium 4.0 Chloride 110 H Carbon Dioxide 23.0 Anion Gap 8 BUN 10 Creatinine 0.62 Estim Creat Clear Calc 113.96 Est GFR (MDRD) Af Amer 142 Est GFR (MDRD) Non-Af 117 BUN/Creatinine Ratio 16.2 Glucose 115 H Lactic Acid 1.0 Calcium 7.7 L Total Bilirubin 0.20 AST 73 H ALT 39 Alkaline Phosphatase 145 H Total Protein 5.7 L Albumin 1.8 L Globulin 3.9 Albumin/Globulin Ratio 0.5 L Blood Type Antibody Screen Crossmatch 04/19/18 22:50 WBC RBC Hgb Hct MCV MCH MCHC RDW RDW Differential Plt Count MPV Immature Gran % (Auto) Neut % (Auto) Lymph % (Auto) Woodson % (Auto) Eos % (Auto) Baso % (Auto) Absolute Neuts (auto) Absolute Lymphs (auto) Total Counted Sodium Potassium Chloride Carbon Dioxide Anion Gap BUN Creatinine Estim Creat Clear Calc Est GFR (MDRD) Af Amer Est GFR (MDRD) Non-Af BUN/Creatinine Ratio Glucose Lactic Acid Calcium Total Bilirubin AST ALT Alkaline Phosphatase Total Protein Albumin Globulin Albumin/Globulin Ratio Blood Type O POSITIVE Antibody Screen NEGATIVE Crossmatch See Detail Medical Necessity - Tobacco Use Smoking Status: Never smoker Assessment/Plan 33yo P2002 POD#3 s/p RLTCS for gestational HTN complicated by hemorrhage -No worsening of post-op anemia - plan iron supplementation. -Rh positive -Routine postop care - -BPs remain upper normal to mildly elevated - no indication for antihypertensive at this time.
[2018-04-20 08:15] VITALS: BP 142/80; PULSE 78; RESP 16; TEMP 36.6; O2SAT 99
--- NOTE | 2018-04-20 08:33 | PCM.DCCSEC ---
Discharge Diet: No Restrictions Discharge Activity: May not drive while taking narcotic pain medications., May Shower Return to work on:: 06/04/18 May resume sexual activity in: 4-6 weeks Lifting Restrictions: 10 lb Additional Activity Instructions:: Nothing in the vagina for 4-6 weeks. You may return to work/school in 6-8 weeks. Call your doctor if your incision/area has: Continuous Slow Oozing, Sudden Increased Bleeding, Increased Pain/ Swelling, Increased Redness Call your doctor if you observe: Fever of 101 or Higher, Inability to urinate, Inability to have a bowel movement, Using more than one pad per hour, Shortness of breath, Chest pain, Calf discomfort, Uncontrolled pain Suture Line Care: Avoid Pulling/Pushing Remove Dressing in (days):: 4 Cleanse incision/area with: Soap & Water, Keep Dressing Clean & Dry Additional Instructions: If you experience any of the following, contact your healthcare provider. Bleeding that soaks a pad every hour for 2 hours Fever 100.4 or higher Unrelieved incision or abdominal pain Swelling, redness, discharge or bleeding from your incision or episiotomy site Your incision begins to separate Problems urinating (including inability to urinate or burning while urinating). Visual changes Severe headache Flu-like symptoms Pain or redness in one of both of your breasts Pain, warmth, tenderness or swelling in your legs, especially the calf area Frequent nausea and vomiting Symptoms of depression or anxiety If you experience any of the following, call 911 or go to the nearest Emergency Room. Chest pain Problems breathing Seizure activity Partial or complete paralysis of a body part, slurred speech, weakness or drooping of the face, or a sudden inability to walk or hold your balance Allergies/Adverse Reactions: Allergies bacitracin [From Neosporin ([id number]-[id number])] Allergy (Verified 04/17/18 16:14) Hives neomycin [From Neosporin ([id number]-dzs-[id number])] Allergy (Verified 04/17/18 16:14) Hives polymyxin B [From Neosporin (vmd-nju-[id number])] Allergy (Verified 04/17/18 16:14) Hives Medications to take at Discharge Metformin HCl 08/08/16 Cetirizine HCl [Zyrtec] 10 mg PO 04/17/18 Docusate Sodium [Colace] 100 mg PO BID #30 cap 04/17/18 Omeprazole 04/17/18 Oxycodone [Oxyir] 5 - 10 mg PO Q6H PRN PRN 7 Days #20 tablet 04/17/18 Vit No.130/Iron/FA [ Tablet] 1 each PO 04/17/18 Ferrous Gluconate 325 mg PO BIDCM tablet 04/20/18 Naproxen [Naprosyn] 250 - 500 mg PO Q8H PRN PRN tablet 04/20/18 The following prescriptions were given: Oxycodone [Oxyir] 5 - 10 mg PO Q6H PRN PRN 7 Days #20 tablet PRN Reason: Mod-Severe Pain (-06/13) Docusate Sodium [Colace] 100 mg PO BID #30 cap Follow-Up: Call to make an appointment with your doctor for an incision check in 1-2 weeks. You will also need a 6 week post- follow up appointment. Test results from this visit will be discussed in further detail at your follow-up appointment, if applicable. Please Follow Up With: Chrissie Galan MD - Blood pressure check When: 7-10 day Primary Care Physician: Care Physician,No Primary [Primary Care Provider] - Proposed Discharge Date: 04/20/18
[2018-04-20] MEDS: Ferrous Gluconate 325 MG Tablet PO ×2 (12:24→18:57)
[2018-04-20] MEDS: Prenatal Vits Tablet 1 TABLET PO (12:24)
[2018-04-20 14:00] VITALS: BP 148/85; PULSE 105; RESP 17; TEMP 36.8; O2SAT 99
--- NOTE | 2018-04-20 17:48 | NURSING ---
1630 While rounding, Mom states that nursing has been going alittle better and she has been following with pumping. Answered many questions regarding feeding and pumping. Timo HODGE
[2018-04-20 20:20] VITALS: BP 138/75; PULSE 104; RESP 18; TEMP 36.4
[2018-04-21] MEDS: oxyCODONE 5 MG Tablet PO ×3 (02:49→11:13)
[2018-04-21 02:50] VITALS: BP 138/91; PULSE 92; RESP 18; TEMP 36.3
[2018-04-21 07:57] VITALS: BP 139/88; PULSE 102; RESP 18; TEMP 36.4; O2SAT 98
--- NOTE | 2018-04-21 08:18 | PCM.PN.OB ---
Patient Problems: Active and Suspected Problems hemorrhage (Acute) Gestational hypertension (Acute) H/O section (Acute) Subjective: Doing well. No fevers. Tolerating PO. Pain reasonably managed with naproxen and occasional oxycodone. Bleeding light. Objective: Afeb VSS. BP better today. - Physical Exam General: Alert, Oriented x3, Cooperative, No apparent distress Lungs: Clear to auscultation, Normal air movement Cardiovascular: Regular rate, Regular Rhythm Abdomen: Soft, Non Tender, Non-Distended, - - Incision intact, dry, no erythema Extremities: No edema Skin: No rashes Neurological: Neuro grossly intact Psych/Mental Status: Normal Affect Comment: Lochia light Vital Signs Temp Pulse Resp BP Pulse Ox 97.6 F L 102 H 18 139/88 H 98 04/21/18 07:57 04/21/18 07:57 04/21/18 07:57 04/21/18 07:57 04/21/18 07:57 Oxygen Delivery Method Room Air Weight: 294 lb Body Mass Index (BMI) 48.9 Laboratory Tests Past 24 Hrs 04/17/18 04/19/18 17:25 22:50 Blood Type O POSITIVE Antibody Screen NEGATIVE Crossmatch See Detail See Detail Medical Necessity - Tobacco Use Smoking Status: Never smoker Assessment/Plan All Active Problems hemorrhage (Acute) Gestational hypertension (Acute) H/O section (Acute) Stable today and doing well. BPs ok. No significant bleeding. Incision without evidence of infection. Cleared for discharge home today. Will take iron supplements at home. Replace Mephilex dressing prior to discharge. Home going instructions and warnings given.
--- NOTE | 2018-04-21 08:23 | PCM.DC.SUM ---
Discharge Date and Diagnosis - Problem List Patient Problems: Active and Suspected Problems hemorrhage (Acute) Gestational hypertension (Acute) H/O section (Acute) Date of Admission: 04/17/18 Date of Discharge: 04/21/18 - Primary Discharge Diagnosis Active and Suspected Problems hemorrhage (Acute) Gestational hypertension (Acute) H/O section (Acute) Hospital Course and Treatment Operations: - - Repeat low transverse section Summary of Care Provided: The patient is a 33 year old F [admitted with gestational hypertension for repeat section. section performed with delivery of live male . Postoperatively she had hemorrhage which was initially controlled with an intrauterine balloon tamponade. Her hgb remained stable over days 3-4. She was offered transfusion but refused as stable and symptomatically ok. She had one fever postoperatively but resolved. No signs of infection on discharge. BPs stable. Discharge Diet: No Restrictions Discharge Activity: May not drive while taking narcotic pain medications., May Shower Return to work on:: 06/04/18 May resume sexual activity in: 4-6 weeks Additional Activity Instructions:: Nothing in the vagina for 4-6 weeks. You may return to work/school in 6-8 weeks. Call your doctor if your incision/area has: Continuous Slow Oozing, Sudden Increased Bleeding, Increased Pain/ Swelling, Increased Redness Call your doctor if you observe: Fever of 101 or Higher, Inability to urinate, Inability to have a bowel movement, Using more than one pad per hour, Shortness of breath, Chest pain, Calf discomfort, Uncontrolled pain Suture Line Care: Avoid Pulling/Pushing Change Dressing in (Days):: 4 Remove Dressing in (days):: 4 Cleanse incision/area with: Soap & Water, Keep Dressing Clean & Dry Home Medications: Medications to take at Discharge Metformin HCl 08/08/16 Cetirizine HCl [Zyrtec] 10 mg PO 04/17/18 Docusate Sodium [Colace] 100 mg PO BID #30 cap 04/17/18 Omeprazole 04/17/18 Oxycodone [Oxyir] 5 - 10 mg PO Q6H PRN PRN 7 Days #20 tablet 04/17/18 Vit No.130/Iron/FA [ Tablet] 1 each PO 04/17/18 Ferrous Gluconate 325 mg PO BIDCM tablet 04/20/18 Naproxen [Naprosyn] 250 - 500 mg PO Q8H PRN PRN tablet 04/20/18 Following Prescrptions Were Given to Patient: Oxycodone [Oxyir] 5 - 10 mg PO Q6H PRN PRN 7 Days #20 tablet PRN Reason: Mod-Severe Pain (-06/13) Docusate Sodium [Colace] 100 mg PO BID #30 cap Primary Care Physician: Care Physician,No Primary [Primary Care Provider] - Please Follow Up With: Chrissie Galan MD - Blood pressure check When: 7-10 day Disposition: Home Minutes spent on discharge:: 15 Patient Condition:: Good Medical Necessity - Tobacco Use Smoking Status: Never smoker Meaningful Use Info Meaningful Use Diagnoses (Choose all that apply): None applicable
[2018-04-21] MEDS: Ferrous Gluconate 325 MG Tablet PO (11:14)
== END 2018-04-21 12:15 | disposition home or self-care (01) | DRG 765 ==
PROVIDERS: Obstetrics & Gynecology; Admitting Provider Obstetrics & Gynecology; Visit Provider Obstetrics & Gynecology
DX: O13.4 Gestational [pregnancy-induced] hypertension without significant proteinuria, complicating childbirth (principal); D62 Acute posthemorrhagic anemia; O34.211 Maternal care for low transverse scar from previous cesarean delivery; O72.1 Other immediate postpartum hemorrhage; O90.81 Anemia of the puerperium; K21.9 Gastro-esophageal reflux disease without esophagitis; Z79.84 Long term (current) use of oral hypoglycemic drugs; Z79.899 Other long term (current) drug therapy; Z3A.38 38 weeks gestation of pregnancy; Z37.0 Single live birth
CPT/HCPCS: 59050; 80053; 80076; 83605; 85025; 85027; 85384; 85610; 85730; 86850; 86900; 86920; 86922; 87040; 93005; 99218; J7030; J7040; J7120; A4216; G0378; J2405

== ENCOUNTER → 2018-04-26 10:04 | Outpatient (CLI) | payer OTHER, SELFPAY ==
[2018-04-26 10:58] LABS: Hematocrit 28.4 % (37-47); Hemoglobin 8.8 g/dl (12.0-15.0); Mean Corpuscular Hgb 28.5 pg (27.0-32.0); Mean Corpuscular Volume 91.9 fL (81-99); Mean Platelet Vol. 9.4 fl (6.2-12.0); Platelet Count 481 K/mm3 (150-450); RBC Distribution Width CV 14.9 % (11.6-14.6); RBC Distribution Width SD 48.5 fl (35.1-43.9); Red Blood Count 3.09 M/mm3 (4.2-5.4); White Blood Count 6.7 K/mm3 (4.4-11.0)
[2018-04-26 11:03] LABS: Scan Indicated on CBC? Y/N NO
[2018-04-26 11:10] LABS: AST(SGOT) 69 U/L (15-37); Alanine Aminotransfer ALT/SGPT 47 U/L (13-56); Albumin, Serum 2.6 g/dL (3.2-5.0); Alkaline Phosphatase 125 U/L (45-117); Bilirubin, Direct 0.08 mg/dL (0.00-0.30); Globulin 4.9 g/dL (2.2-4.2); Protein, Total 7.5 g/dL (6.4-8.2)
== END ==
PROVIDERS: Visit Provider Obstetrics & Gynecology
DX: O72.1 Other immediate postpartum hemorrhage (principal); O90.81 Anemia of the puerperium
CPT/HCPCS: 36415; 80076; 85027

== ENCOUNTER 2018-04-26 10:30 | Outpatient (CLI) | payer OTHER, SELFPAY | END 2018-04-26 11:30 | disposition home or self-care (01) | LOC: WPOUT 13:20 → WP 13:20 | PROVIDERS: Visit Provider Obstetrics & Gynecology | DX: Z39.1 Encounter for care and examination of lactating mother (principal) | CPT/HCPCS: 96152 ==

== ENCOUNTER → 2020-04-23 11:57 | Outpatient (CLI) | payer OTHER, SELFPAY ==
[2020-04-23 11:13] VITALS: BMI 48.9
[2020-04-23 12:19] LABS: Absolute Lymphocyte Count 1.09 X10^3/uL (0.83-4.51); Absolute Neutrophil Count 3.5 X10^3/uL (2.0-7.7); Basophil# 0.02 X10^3/uL; Basophil% 0.4 % (0-1); Eosinophil# 0.21 X10^3/uL; Hematocrit 40.8 % (37-47); Hemoglobin 13.7 g/dL (12.0-15.0); Lymphocyte # 1.09 X10^3/ul (4.0); Lymphocyte % 20.8 % (19-41); Mean Corp Hgb Conc 33.6 g/dL (32-36); Mean Corpuscular Hgb 31.4 pg (27.0-32.0); Mean Corpuscular Volume 93.4 fL (81-99); Mean Platelet Vol. 9.9 fl (6.2-12.0); Monocyte# 0.45 X10^3/uL; Monocyte% 8.6 % (0-10); NRBC Flagged by Analyzer 0 % (0-5); Neutrophil # 3.45 X10^3/uL (2.7-7.7); Platelet Count 299 K/mm3 (150-450); RBC Distribution Width CV 12.3 % (11.6-14.6); RBC Distribution Width SD 42.4 fl (35.1-43.9); Red Blood Count 4.37 M/mm3 (4.2-5.4); White Blood Count 5.2 K/mm3 (4.4-11.0)
[2020-04-23 12:41] LABS: ALB/GLOB Ratio 0.9 RATIO (0.9-2.4); AST(SGOT) 38 U/L (15-37); Alanine Aminotransfer ALT/SGPT 23 U/L (13-56); Albumin, Serum 3.6 g/dL (3.2-5.0); Alkaline Phosphatase 55 U/L (45-117); Anion Gap 4 (5-15); BUN 8 mg/dL (7-18); BUN/Creat Ratio 11.8 RATIO (10-20); Calcium,Total 8.9 mg/dL (8.5-10.1); Chloride 108 mmol/L (98-107); Creatinine, Serum 0.68 mg/dL (0.55-1.02); EST Glomerular Filtration Rate 104 mL/min (>60); Est Glom Filt Rate - Afr Amer 126 mL/min (>60); Glucose 118 mg/dL (74-106); Glucose Challenge Gest 1H 50g 118 mg/dL (70-140); Potassium 3.7 mmol/L (3.5-5.1); Protein, Total 7.6 g/dL (6.4-8.2); Sodium Level 139 mmol/L (136-145)
[2020-04-23 13:20] LABS: HIV - WCH Non-Reactive (Nonreactive); Hepatitis B Surface Antigen Non-Reactive (Nonreactive); Hepatitis C Antibody Non-Reactive (Nonreactive); Rubella IgG 14.2 IU/mL
[2020-04-30 05:27] LABS: Rapid Plasmin Reagin (RPR) NONREACTIVE (NONREACTIVE)
== END ==
PROVIDERS: Referring Provider Obstetrics & Gynecology; Visit Provider Obstetrics & Gynecology
DX: O09.90 Supervision of high risk pregnancy, unspecified, unspecified trimester (principal); Z3A.00 Weeks of gestation of pregnancy not specified
CPT/HCPCS: 80053; 82950; 85025; 86592; 86703; 86762; 86803; 86850; 86900; 86901; 87340

== ENCOUNTER → 2020-04-23 12:10 | Outpatient (CLI) | payer OTHER, SELFPAY ==
[2020-04-23 11:13] VITALS: BMI 48.9
--- NOTE | 2020-04-23 12:14 | US_ITS ---
STUDY: FIRST TRIMESTER OBSTETRICAL ULTRASOUND REASON FOR EXAM: Female, 35 years old. Viability LMP: 02/22/20 TECHNIQUE: Transabdominal PRIOR ULTRASOUND: None. FINDINGS: There is visualization of a single gestational sac in a normal intrauterine position. There is a visualized yolk sac. There is visualization of a live embryo. The crown-rump length (CRL) measures 1.96 cm, indicating an estimated gestational age (EGA) of 8 weeks, 4 days. The mean sac diameter corresponds to 8 weeks and 0 days. The sonographic age is 8 weeks and 2 days. The estimated delivery date is 12/01/20. There is demonstrated cardiac activity with a heart rate of 169 bpm. The uterus measures 11.0 x 7.6 x 6.3 cm. There is no demonstrated uterine fibroid. The cervix is closed. The ovaries are not visualized. There is no fluid in the cul de sac. US/Init OB < 14Wks US IMPRESSION: Single live intrauterine gestation, as described above. Electronically Signed: Raj Hall, at 13:11 EDT Tel , Service support ,
[2020-04-23 14:40] LABS: Amphetamine Urine VISTA NEGATIVE (<1000 ng/mL); Barbiturate Urine VISTA NEGATIVE (< 200 ng/mL); Benzodiazepine Urine VISTA NEGATIVE (< 200 ng/mL); Cocaine Urine VISTA NEGATIVE (< 300 ng/mL); Ecstacy Urine VISTA NEGATIVE (< 500 ng/mL); Methadone Urine VISTA NEGATIVE (< 300 ng/mL); PCP Urine VISTA NEGATIVE (< 25 ng/mL); THC Urine VISTA NEGATIVE (< 50 ng/mL); Vista UDS pH Range 5
[2020-04-25 03:07] LABS: Chlamydia By Nucleic Acid AMP Negative (Negative)
[2020-04-25 07:32] LABS: Gonococcus By Nucleic Acid AMP Negative (Negative)
== END ==
PROVIDERS: Referring Provider Obstetrics & Gynecology; Visit Provider Obstetrics & Gynecology
DX: O09.529 Supervision of elderly multigravida, unspecified trimester (principal); Z3A.00 Weeks of gestation of pregnancy not specified
CPT/HCPCS: 76801; 80307; 87077; 87086; 87088; 87186; 87491; 87591

== ENCOUNTER 2020-05-03 16:04 | Day surgery (SDC) | payer OTHER, SELFPAY ==
[2020-04-23 11:13] VITALS: BMI 48.9
[2020-05-03] VITALS (10 sets, daily range): BP systolic 93–160; BP diastolic 70–111; PULSE 95–115; RESP 14–19; TEMP 36.4–37; O2SAT 98–100; BMI 44.6
--- NOTE | 2020-05-03 17:13 | US_ITS ---
STUDY: FIRST TRIMESTER OBSTETRICAL ULTRASOUND REASON FOR EXAM: Female, 35 years old VAGINAL BLEEDING WITH , CRAMPING, PASSING LARGE HEAVY CLOTS X 3 DAYS LMP: 02/22/2020 TECHNIQUE: Transabdominal TECHNICAL QUALITY: Adequate. PRIOR ULTRASOUND: 04/23/2020 FINDINGS: There is no demonstrated intrauterine gestational sac. There is no demonstrated yolk sac. The placenta is non-visualized. There is no demonstrated embryo ( pole). The estimated gestation age (EGA) by LMP is 10 weeks, 1 days. The estimated date of delivery (ANGÉLICA) by LMP is 11/28/2020. The uterus measures 14.0 x 8.0 x 6.5 cm. There is no demonstrated uterine fibroid. The cervix is closed. The endometrium is heterogeneous. Neither ovary was visualized. There is no fluid in the cul de sac. US/Init OB < 14Wks US IMPRESSION: There is no evidence of gestational sac or products of conception within the uterus. Hospice Spiritual Care Coordinator reports large amount of heterogeneous material distending the vaginal canal consistent with blood clot/products of conception. Electronically Signed: Daniel Villalobos MD at 18:36 EDT , Service support ,
[2020-05-03 17:30] LABS: Absolute Lymphocyte Count 1.24 X10^3/uL (0.83-4.51); Absolute Neutrophil Count 6.3 X10^3/uL (2.0-7.7); Basophil# 0.02 X10^3/uL; Basophil% 0.2 % (0-1); Eosinophil# 0.18 X10^3/uL; Eosinophils% 2.1 % (0-5); Hematocrit 40.6 % (37-47); Hemoglobin 13.6 g/dL (12.0-15.0); Lymphocyte # 1.24 X10^3/ul (4.0); Lymphocyte % 14.6 % (19-41); Mean Corp Hgb Conc 33.5 g/dL (32-36); Mean Corpuscular Hgb 31.2 pg (27.0-32.0); Mean Corpuscular Volume 93.1 fL (81-99); Mean Platelet Vol. 9.7 fl (6.2-12.0); Monocyte# 0.67 X10^3/uL; Monocyte% 7.9 % (0-10); NRBC Flagged by Analyzer 0 % (0-5); Neutrophil # 6.34 X10^3/uL (2.7-7.7); Platelet Count 302 K/mm3 (150-450); RBC Distribution Width CV 12.3 % (11.6-14.6); RBC Distribution Width SD 42.7 fl (35.1-43.9); Red Blood Count 4.36 M/mm3 (4.2-5.4); White Blood Count 8.5 K/mm3 (4.4-11.0)
[2020-05-03] MEDS: 0.9% Normal Saline 1,000 ML 999 ML IV (18:48)
[2020-05-03] MEDS: Morphine 4 MG/ML Syringe IV (18:48)
--- NOTE | 2020-05-03 18:59 | PCM.HP.OB ---
History Date of Admission: 04/17/18 History of this : This is a 35 year-old, G3, P2 presenting to the ER with heavy vaginal bleeding. Based on ultrasound done earlier this month she is 10 weeks 1 day gestation. She presents with heavy vaginal bleeding throughout the course of the day today. She has been passing large clots. Reports severe abdominal cramping. Denies lightheadedness and dizziness. Heart rate is noted to be in the 110s to 120s. Medical History: Medical History (Last Updated 04/23/20 @ 10:25 by Chrissie Dillon) GERD (gastroesophageal reflux disease) K21.9 H/O hemorrhage, currently O09.299 2018- refused blood transfusion HGB was below 6 PCOS (polycystic ovarian syndrome) E28.2 Chronic hypertension affecting O10.919 Surgical History: Surgical History (Last Updated 04/23/20 @ 10:25 by Chrissie Dillon) H/O section Z98.891 x2 Allergies bacitracin [From Neosporin ([id number]-[id number]-[id number])] Allergy (Verified 05/03/20 16:05) Hives neomycin [From Neosporin (kzh-gad-oujnf)] Allergy (Verified 05/03/20 16:05) Hives polymyxin B [From Neosporin (nct-vpr-llmps)] Allergy (Verified 05/03/20 16:05) Hives Home Medications: Home Medications Vit No.130/Iron/Folic [ Tablet] 1 each PO 04/17/18 metformin 1,000 mg tablet 1,000 mg PO DAILY 04/23/20 omeprazole magnesium 20 mg tablet,delayed release 20 mg PO DAILY 04/23/20 Smoking Status: Never smoker Alcohol: None History Past Pregnancies: Past Pregnancies Del. Date Name GA/Weeks Outcome Route Bth Weight Gen Labor Lgth Anesthesia Del Locatn Provider FOB Unknown 08/14/2013- Andres 39 live - full term 7lbs 6oz Male spinal Juan Jose Browne Unknown 04/17/2018- Zack 38 live - full term 7lbs 5oz Male spinal Dr. Galan [facility] [place] Review of Systems Constitutional: Denies: Chills, Fever HEENT: Denies: Sinus Congestion, Sinus Drainage Cardiovascular: Denies: Chest Pain, Light Headedness, Palpitations Respiratory: Denies: Cough Gastrointestinal: Reports: Abdominal Pain. Denies: Nausea, Vomiting Genitourinary: Denies: Dysuria Gynecological: Reports: Vaginal bleeding. Denies: Vaginal discharge, Vaginal itching Psychiatric: Reports: Anxiety. Denies: Depression Physical Exam Vitals: Vital Signs Temp Pulse Resp BP Pulse Ox 97.5 F L 112 H 19 H 121/81 H 99 05/03/20 16:05 05/03/20 18:52 05/03/20 18:52 05/03/20 18:52 05/03/20 18:52 General: Alert, Oriented x3, No apparent distress HEENT: Atraumatic, Normocephalic Cardiovascular: Regular Rhythm, Tachycardic Lungs: Normal air movement Abdomen: Soft, Non Tender, Non-Distended Neurological: Deep Tendon Reflexes 2+/4 and Symmetrical, Neuro grossly intact ASSEMBLER PIANO: Negative for: Normal external genitalia - active bleeding from introitus with chux pad fully soaked Assessment/Plan All Active Problems (Last Updated 04/23/20 @ 10:25 by Chrissie Dillon) Post traumatic stress disorder (PTSD) (Acute) Sterilization (Acute) Obesity affecting (Acute) Supervision of high risk , antepartum (Acute) AMA (advanced maternal age) multigravida 35+ (Acute) (Acute) H/O HELLP syndrome, currently (Acute) hemorrhage (Acute) Gestational hypertension (Acute) H/O section (Acute) This is a 35 year-old, presenting with incomplete 1. Incomplete -Presenting to the ER with heavy vaginal bleeding. -Ultrasound performed in ER shows no evidence of live intrauterine . Does show heterogeneous appearing material inside the uterus. Ultrasound reviewed reports no evidence of products of conception, however ultrasound images reviewed and concern for retained products based on clinical picture and thickness of endometrial stripe. I recommended proceeding with a suction dilation and curettage. -The risks, benefits, indications, and alternatives to the procedure were discussed with the patient including bleeding, infection, and damage to surrounding structures. She is agreeable to blood products if medically necessary. Understands the risk of infection and signs and symptoms of infection to watch for. And the possibility of perforation at this could require additional surgery if this were to occur. All questions were answered to the best of my ability. The patient voices understanding and agrees to proceed. Multi Select Codes - Visit Charges Office Visit/Consults: 48852 OP Consult L4 - Patient seen in ER and scheduled for surgery the same day
--- NOTE | 2020-05-03 19:14 | PCM.OPRPT ---
Report of Operation Date of Procedure: 05/03/20 Pre-Operative Diagnosis: Incomplete Post-Operative Diagnosis: same Surgery/Procedure Performed:: Suction Dilation and curettage Description of Surgical Findings:: Cervix dilated 1cm. Clots passing through cervix. Type of Anesthesia:: Local MAC Anesthesiologist: Fab Camejo Special Medications: Ancef 2g Specimen's removed: Products of conception Estimated Blood Loss (mL): 50 Description of Procedure: The patient was taken to the operating room where anesthesia was obtained without difficulty. She was prepped and draped in the dorsal lithotomy position with yellowfin stirrups. A weighted speculum was placed in the posterior aspect of the vagina. The lower lip of her cervix was grasped with a ring forcep. Her cervix was found to be adequately dilated to accommodate a #10 curved suction curette. A 10 curved suction curette was then introduced into the uterine cavity. A gentle sharp curettage was then performed. A final pass was made with the suction curette. The procedure was deemed complete. All instruments were removed from the vagina. The patient tolerated the procedure well and was taken to recovery in stable condition. - Complications None apparent - Admit VTE Documentation VTE Present on Admission: No VTE Mechan Device Prophylaxis: SCD's VTE Pharm Prophylaxis ordered?: No Multi Select Codes - Urinary/Genital Urinary/Genital CPT Codes: 59443 Surg Trtmt missed Ab 1TM
--- NOTE | 2020-05-03 19:23 | DCINST_ITS ---
Discharge Diet: No Restrictions Discharge Activity: Return to Normal Activity, May Shower, May Take a Tub Bath - in 2 weeks. May shower in (days): 1 May resume sexual activity in: 10-14 days Weight Bearing Status: Weight bearing as tolerated Call your doctor if your incision/area has: Sudden Increased Bleeding, Foul Smelling Discharge Call your doctor if you observe: Fever of 101 or Higher, Inability to urinate Allergies/Adverse Reactions: Allergies bacitracin [From Neosporin ([id number]-zjc-jnadb)] Allergy (Verified 05/03/20 16:05) Hives neomycin [From Neosporin (yzi-fzk-nucgb)] Allergy (Verified 05/03/20 16:05) Hives polymyxin B [From Neosporin ([id number]-uta-[id number])] Allergy (Verified 05/03/20 16:05) Hives Medications to take at Discharge Vit No.130/Iron/Folic [ Tablet] 1 each PO DAILY 04/17/18 metformin 1,000 mg tablet 1,000 mg PO DAILY 04/23/20 omeprazole magnesium 20 mg tablet,delayed release 20 mg PO DAILY 04/23/20 Ibuprofen [Motrin] 800 mg PO Q8H #60 tab 05/03/20 Oxycodone HCl/Acetaminophen [Percocet 5-325] 1 - 2 tab PO Q6H PRN PRN 7 Days #3 tab 05/03/20 The following prescriptions were given: Ibuprofen [Motrin] 800 mg PO Q8H #60 tab Transmission Status: Received by [id number] Oxycodone HCl/Acetaminophen [Percocet 5-325] 1 - 2 tab PO Q6H PRN PRN 7 Days #3 tab PRN Reason: Pain Transmission Status: Received by [id number] Primary Care Physician: Yeni Edmond MD [Primary Care Provider] - Rebecca Bowles MD [STAFF PHYSICIAN] - Test Results: Test results from this visit will be discussed in further detail at your follow- up appointment, if applicable. Please Follow Up With: Rebecca Bowles MD When: 1 week
--- NOTE | 2020-05-03 19:43 | ED.RN ---
gave report to Temi in OR
--- NOTE | 2020-05-03 19:45 | POC_PTH ---
PATIENT: ELIJAH DEWEY LOC: [facility] [place] U#:[id number] AGE/SX: 35/F ROOM: RE05/03/[address]: Dr. Rebecca Bowles MD : 1985 BED: DIS: 05/03/2020 SPEC #: [id number] RECD: 05/04/20 09:13 STATUS: LEXI MICHAEL #: [id number] SIRIA: 05/03/20 19:[address]: Rebecca Bowles DEPT: SURGICAL PATHOLOGY RECD BY: Alex Veloz ENTERED: 05/04/20 09:13 SP TYPE: PROD CONC OTHR DR: Dr. Yeni Edmond MD Tissues: Product of conception, NOS Procedures: Surgery Specimen Level IV HEADER OPERATION: Dilation and curettage, suction PRE-OP DIAGNOSIS: Incomplete TISSUE SUBMITTED: Products of conception (Anora) MICROSCOPIC DIAGNOSIS Products of conception: [place], gestational endometrium and immature chorionic villi (products of conception). See comment. JACKIE:micki 05/05/20 COMMENT Results of Anora testing will be reported as an addendum. MICROSCOPIC DESCRIPTION Slides are reviewed. GROSS DESCRIPTION Received in fixative is one container labeled with the patient's name and designated products of conception. The specimen consists of multiple fragments of hemorrhagic soft tissue mixed with blood clot that in aggregate measure 9 x 9 x 3 cm. No tissue is identified. Assistant Farm Operations Manager tissue is submitted in two cassettes. A portion of the specimen is submitted for Anora testing. / JACKIE:micki 05/04/20 TC:5 CPT: 28231 ADDENDUM ADDENDUM ADDENDUM ADDENDUM ADDENDUM ADDENDUM ADDENDUM ADDENDUM ADDENDUM 05/13/2020 10:03 ADDENDUM 05/13/2020 10:03 ADDENDUM 05/13/2020 10:03 ADDENDUM 05/13/2020 10:03 ADDENDUM 05/13/2020 10:03 ANORA MICROARRAY CHROMOSOME ANALYSIS WITH PARENTAL SUPPORT RESULT: Maternal cell contamination MICROARRAY RESULT: n/a CLINICAL INTERPRETATION: Maternal cell contamination was detected. Insufficient DNA detected for analysis. Please see complete report in e-chart or EMR
--- NOTE | 2020-05-03 20:17 | ED.DCSUM_ITS ---
History of Present Illness Chief Complaint: Vag Bld, Preg Informant: Patient Pain: Pelvic Pain Onset: Yesterday Quality: Cramping Issue: Vaginal bleeding, Passing clots Test: Positive Narrative: Patient is a 35-year-old G3, P2 currently 10 weeks and 2 days presenting with vaginal bleeding and pelvic pain. Patient states started having vaginal spotting about 10 days ago. She is diagnosed with UTI and treated by her AUTOMOTIVE WORKER. She had an ultrasound which was technically difficult but did show a live intrauterine gestation. Patient started having heavier bleeding yesterday which progressed into very heavy bleeding today. She states she is now bleeding clots and bright red blood and going through about a pad every hour or 2. She is not noticed any passage of products of conception. He is also having severe cramping which he states is worse than any menstrual cramp she is ever had. She denies any other complaints at this time. She states she does not feel lightheaded. Her AUTOMOTIVE WORKER is Dr. Josr Osorio. Past Medical History - Allergies and Home Meds Allergies/Adverse Reactions: Allergies bacitracin [From Neosporin ([id number])] Allergy (Verified 05/03/20 16:05) Hives neomycin [From Neosporin ([id number])] Allergy (Verified 05/03/20 16:05) Hives polymyxin B [From Neosporin ([id number])] Allergy (Verified 05/03/20 16:05) Hives Past Medical History: None Surgical History: - - x2 Smoking Status: Never smoker Alcohol: None Review of Systems General: Denies: Chills, Fever, Sweats Eyes: Denies: Visual changes - bilaterally, Diplopia ENT: Denies: Rhinorrhea, Sore throat Cardiovascular: Denies: Chest pain, Palpitations Respiratory: Denies: Dyspnea, Cough, Dyspnea on exertion Gastrointestinal: Reports: Abdominal pain. Denies: Nausea, Vomiting, Diarrhea, Melena, Hematochezia Genitourinary: Reports: - - Vaginal bleeding. Denies: Dysuria, Hematuria, Frequency Musculoskeletal: Denies: Back pain, Extremity Pain Skin: Denies: Rash, Wounds Neurological: Denies: Headache, Weakness, Numbness Physical Exam Vital Signs/Narrative: Vital Signs Temp Pulse Resp BP Pulse Ox 05/03/20 19:24 97.5 F L 107 H 14 122/85 H 100 05/03/20 19:07 93/81 H 100 05/03/20 18:52 112 H 19 H 121/81 H 99 Inital Vital Signs reviewed: Yes General: Well nourished, Well developed Head: Normocephalic, Atraumatic Eyes: Perrl, EOMI ENT: Moist mucous membranes, No rhinorrhea Neck: Supple, Nontender Cardiovascular: Regular rate, Regular rhythm, No murmurs Respiratory: No distress, CTA bilaterally, Chest nontender Abdomen: Soft, Nondistended, Normal bowel sounds, Tender - Suprapubic region. Negative for: Guarding, Rebound tenderness : Speculum exam: Normal external genitalia, No vaginal lesions, No vaginal discharge, Moderate active bleeding, Large clots Bimanual exam: No cervical motion tenderness, Normal size uterus, Nontender uterus, - - Os is open Back: Nontender, Normal Inspection Extremities: Nontender, No edema Skin: Normal color, No rash Neurological: Alert, Oriented x3, Cranial nerves II-XII grossly intact, Normal Strength, Normal Sensation Psychological: Normal affect Diagnostic/Tx/Re-eval Clinical Impression(s) from Imaging Studies Obstetrics Ultrasound 05/03/20 17:13 IMPRESSION: There is no evidence of gestational sac or products of conception within the uterus. Radiotelephone Operator reports large amount of heterogeneous material distending the vaginal canal consistent with blood clot/products of conception. Electronically Signed: Daniel Villalobos MD at 18:36 EDT , Service support , Laboratory Data 05/03/20 05/03/20 17:18 17:18 WBC 8.5 RBC 4.36 Hgb 13.6 Hct 40.6 MCV 93.1 MCH 31.2 MCHC 33.5 RDW Std Deviation 42.7 RDW Coeff of Bhavin 12.3 Plt Count 302 MPV 9.7 Immature Gran % (Auto) 0.200 Neut % (Auto) 75.0 H Lymph % (Auto) 14.6 L Routt % (Auto) 7.9 Eos % (Auto) 2.1 Baso % (Auto) 0.2 Absolute Neuts (auto) 6.3 Absolute Lymphs (auto) 1.24 Nucleated RBC % 0 HCG, Quant [id number] H - Treatment/Re-Evaluation Treatment: Morphine IV - Medical Decision/Diagnostic Studies Patient is evaluated for heavy vaginal bleeding in the setting of early . On exam patient is hypertensive and it seems uncomfortable but declines any medication for pain including morphine. A pelvic exam patient has a large amount of vaginal bleeding, no proximal of conception. Her office appears to be open I suspect this is an active miscarriage. Will obtain an ultrasound for further evaluation. Ultrasound shows no intrauterine gestation which is a change from ultrasound 10 days ago. Case is discussed with OB on- call who was concerned about the amount of bleeding. She evaluates patient in the ER and decided to take the patient to the OR. Patient does have some mild hypotension such a little lightheaded. She is given IV fluids and does have improvement. Patient eventually consents for morphine for pain which does help her significantly. Patient is admitted to the OR for D&C. She is agreeable this plan. She is aware of findings in the ER. ED Disposition - Plan for ED Patient: Disposition: [facility] Diagnosis: Incomplete miscarriage, Episode of heavy vaginal bleeding
== END 2020-05-03 21:15 | disposition home or self-care (01) ==
LOC: ED 16:26 → SDC 19:13 → AC 19:13
PROVIDERS: Emergency Provider Emergency Medicine; PCP Obstetrics & Gynecology; Visit Provider Obstetrics & Gynecology
PROC: (CPT 59812; principal; 2020-05-03 19:45)
DX: O03.1 Delayed or excessive hemorrhage following incomplete spontaneous abortion (principal)
CPT/HCPCS: 01965; 59812; 76801; 84702; 85025; 88305; 99284; J7030; A4216; J2405

== ENCOUNTER → 2020-10-13 15:42 | Outpatient (CLI) | payer OTHER, SELFPAY ==
--- NOTE | 2020-10-13 15:55 | CT_ITS ---
Exam: Noncontrast CT of the left wrist. HISTORY: Left wrist fracture. COMPARISON: None, no radiographs. Individualized dose optimization techniques were used for this CT. FINDINGS: Very significantly limited exam. There is nonstandard planes of imaging. No lateral axis imaging. No true frontal axis of imaging. There is also extremely limited resolution of the bones suggesting improper protocol and/or CT dose. There appears to be nondisplaced intra-articular fracture of the radius. No angulation. No impaction. No distracted fragments. No other definite abnormalities. Grossly normal ulna, carpals and metacarpals. CT/Extremity Upper without Contra IMPRESSION: Nondisplaced intra-articular fracture of the distal radial metaphysis without angulation. Note: This exam is significantly limited and in fact, standard radiographs would offer far better resolution of the bones than this CT scan. Electronically Signed: Heri qAuino MD at 16:30 EST , Service support ,
== END ==
PROVIDERS: PCP Student in an Organized Health Care Education/Training Program; Referring Provider Orthopaedic Surgery; Visit Provider Orthopaedic Surgery
DX: S52.509A Unspecified fracture of the lower end of unspecified radius, initial encounter for closed fracture (principal); X58.XXXA Exposure to other specified factors, initial encounter; Y93.9 Activity, unspecified; Y92.9 Unspecified place or not applicable; Y99.9 Unspecified external cause status
CPT/HCPCS: 73200

== ENCOUNTER → 2020-11-18 | Outpatient (CLI) | payer OTHER, SELFPAY ==
[2020-11-18 13:49] VITALS: BMI 45.4
[2020-11-21 03:06] LABS: Chlamydia By Nucleic Acid AMP Negative (Negative)
[2020-11-21 09:27] LABS: Gonococcus By Nucleic Acid AMP Negative (Negative)
[2020-12-03 15:09] LABS: HPV APTIMA, High Risk Negative
== END | disposition home or self-care (01) ==
LOC: LABSPEC 15:25
PROVIDERS: PCP Student in an Organized Health Care Education/Training Program; Visit Provider Obstetrics & Gynecology
DX: Z12.4 Encounter for screening for malignant neoplasm of cervix (principal)
CPT/HCPCS: 87491; 87591; 87624; 88175; G0145

== ENCOUNTER → 2020-11-18 | Outpatient (CLI) | payer OTHER, SELFPAY ==
[2020-11-18 13:49] VITALS: BMI 45.4
[2020-11-18 16:23] LABS: Amphetamine Urine VISTA NEGATIVE (<1000 ng/mL); Barbiturate Urine VISTA NEGATIVE (< 200 ng/mL); Benzodiazepine Urine VISTA NEGATIVE (< 200 ng/mL); Cocaine Urine VISTA NEGATIVE (< 300 ng/mL); Ecstacy Urine VISTA NEGATIVE (< 500 ng/mL); Methadone Urine VISTA NEGATIVE (< 300 ng/mL); PCP Urine VISTA NEGATIVE (< 25 ng/mL); THC Urine VISTA NEGATIVE (< 50 ng/mL); Vista UDS pH Range 5
== END | disposition home or self-care (01) ==
LOC: LABSPEC 15:27
PROVIDERS: PCP Student in an Organized Health Care Education/Training Program; Referring Provider Obstetrics & Gynecology; Visit Provider Obstetrics & Gynecology
DX: O09.90 Supervision of high risk pregnancy, unspecified, unspecified trimester (principal)
CPT/HCPCS: 80307; 87086; 87088

== ENCOUNTER → 2020-12-10 17:06 | Outpatient (CLI) | payer OTHER, SELFPAY ==
[2020-11-18 13:49] VITALS: BMI 45.4
[2020-12-10 18:13] LABS: Absolute Lymphocyte Count 1.36 X10^3/uL (0.83-4.51); Absolute Neutrophil Count 2.9 X10^3/uL (2.0-7.7); Basophil# 0.02 X10^3/uL; Basophil% 0.4 % (0-1); Eosinophil# 0.22 X10^3/uL; Eosinophils% 4.4 % (0-5); Hematocrit 39.2 % (37-47); Hemoglobin 13.1 g/dL (12.0-15.0); Lymphocyte # 1.36 X10^3/ul (4.0); Lymphocyte % 27.2 % (19-41); Mean Corp Hgb Conc 33.4 g/dL (32-36); Mean Corpuscular Hgb 30.8 pg (27.0-32.0); Mean Corpuscular Volume 92.2 fL (81-99); Mean Platelet Vol. 9.8 fl (6.2-12.0); Monocyte# 0.47 X10^3/uL; Monocyte% 9.4 % (0-10); NRBC Flagged by Analyzer 0 % (0-5); Neutrophil # 2.92 X10^3/uL (2.7-7.7); Neutrophil % 58.4 % (47-70); Platelet Count 272 K/mm3 (150-450); RBC Distribution Width CV 12.6 % (11.6-14.6); RBC Distribution Width SD 42.4 fl (35.1-43.9); Red Blood Count 4.25 M/mm3 (4.2-5.4)
[2020-12-10 18:49] LABS: NATERA MAILED SPECIMEN
[2020-12-10 19:18] LABS: ALB/GLOB Ratio 0.8 RATIO (0.9-2.4); AST(SGOT) 37 U/L (15-37); Alanine Aminotransfer ALT/SGPT 28 U/L (13-56); Albumin, Serum 3.2 g/dL (3.2-5.0); Alkaline Phosphatase 53 U/L (45-117); Anion Gap 7 (5-15); BUN 11 mg/dL (7-18); BUN/Creat Ratio 18.1 RATIO (10-20); Calcium,Total 8.9 mg/dL (8.5-10.1); Chloride 108 mmol/L (98-107); Creatinine, Serum 0.61 mg/dL (0.55-1.02); EST Glomerular Filtration Rate 117 mL/min (>60); Est Glom Filt Rate - Afr Amer 142 mL/min (>60); Globulin 3.8 g/dL (2.2-4.2); Glucose 90 mg/dL (74-106); Glucose Challenge Gest 1H 50g 90 mg/dL (70-140); Potassium 3.5 mmol/L (3.5-5.1); Sodium Level 138 mmol/L (136-145)
[2020-12-11 10:34] LABS: HIV - WCH Non-Reactive (Nonreactive); Hepatitis B Surface Antigen Non-Reactive (Nonreactive); Hepatitis C Antibody Non-Reactive (Nonreactive); Rubella IgG Reactive (Nonreactive)
== END ==
PROVIDERS: PCP Student in an Organized Health Care Education/Training Program; Visit Provider Obstetrics & Gynecology
DX: O09.90 Supervision of high risk pregnancy, unspecified, unspecified trimester (principal); O09.299 Supervision of pregnancy with other poor reproductive or obstetric history, unspecified trimester; O99.210 Obesity complicating pregnancy, unspecified trimester; Z3A.00 Weeks of gestation of pregnancy not specified
CPT/HCPCS: 36415; 80053; 82950; 85025; 86703; 86762; 86803; 86850; 86900; 86901; 87340

== ENCOUNTER → 2021-04-02 16:17 | Outpatient (CLI) | payer OTHER, SELFPAY ==
[2021-03-11 10:44] VITALS: BMI 45.5
[2021-04-02 17:39] LABS: Absolute Lymphocyte Count 1.12 X10^3/uL (0.83-4.51); Absolute Neutrophil Count 4.4 X10^3/uL (2.0-7.7); Basophil# 0.01 X10^3/uL; Basophil% 0.2 % (0-1); Eosinophil# 0.17 X10^3/uL; Eosinophils% 2.7 % (0-5); Hematocrit 39.4 % (37-47); Hemoglobin 13.4 g/dL (12.0-15.0); Lymphocyte # 1.12 X10^3/ul (0.83-4.51); Lymphocyte % 17.9 % (19-41); Mean Corpuscular Hgb 30.3 pg (27.0-32.0); Mean Corpuscular Volume 89.1 fL (81-99); Mean Platelet Vol. 10.5 fl (6.2-12.0); Monocyte# 0.53 X10^3/uL; Monocyte% 8.5 % (0-10); NRBC Flagged by Analyzer 0 % (0-5); Neutrophil # 4.43 X10^3/uL (2.7-7.7); Neutrophil % 70.5 % (47-70); Platelet Count 273 K/mm3 (150-450); RBC Distribution Width CV 13.3 % (11.6-14.6); RBC Distribution Width SD 43.6 fl (35.1-43.9); Red Blood Count 4.42 M/mm3 (4.2-5.4); White Blood Count 6.3 K/mm3 (4.4-11.0)
[2021-04-02 18:04] LABS: Glucose Challenge Gest 1H 50g 114 mg/dL (70-140)
[2021-04-05 09:48] LABS: Syphilis Antibodies Non-reactive
== END ==
PROVIDERS: PCP Student in an Organized Health Care Education/Training Program; Referring Provider Obstetrics & Gynecology; Visit Provider Obstetrics & Gynecology
DX: O09.90 Supervision of high risk pregnancy, unspecified, unspecified trimester (principal); Z3A.00 Weeks of gestation of pregnancy not specified
CPT/HCPCS: 36415; 82950; 85025; 86780

== ENCOUNTER → 2021-04-21 12:10 | Outpatient (CLI) | payer OTHER, SELFPAY ==
[2021-04-21 13:56] LABS: Absolute Lymphocyte Count 1.05 X10^3/uL (0.83-4.51); Absolute Neutrophil Count 3.4 X10^3/uL (2.0-7.7); Basophil# 0.01 X10^3/uL; Basophil% 0.2 % (0-1); Eosinophils% 3.8 % (0-5); Hematocrit 41.7 % (37-47); Hemoglobin 13.8 g/dL (12.0-15.0); Lymphocyte # 1.05 X10^3/ul (0.83-4.51); Mean Corp Hgb Conc 33.1 g/dL (32-36); Mean Corpuscular Hgb 30.3 pg (27.0-32.0); Mean Corpuscular Volume 91.6 fL (81-99); Mean Platelet Vol. 10.8 fl (6.2-12.0); Monocyte# 0.57 X10^3/uL; Monocyte% 10.9 % (0-10); NRBC Flagged by Analyzer 0 % (0-5); Neutrophil # 3.39 X10^3/uL (2.7-7.7); Neutrophil % 64.7 % (47-70); Platelet Count 291 K/mm3 (150-450); RBC Distribution Width CV 13.4 % (11.6-14.6); Red Blood Count 4.55 M/mm3 (4.2-5.4); White Blood Count 5.2 K/mm3 (4.4-11.0)
[2021-04-21 14:07] LABS: Protein, Urine (Random) 24.1 mg/dL (<11.9); Protein:Creat Ratio 132 mg/g CRE (0-200)
[2021-04-21 14:22] LABS: ALB/GLOB Ratio 0.5 RATIO (0.9-2.4); AST(SGOT) 46 U/L (15-37); Alanine Aminotransfer ALT/SGPT 26 U/L (13-56); Albumin, Serum 2.4 g/dL (3.2-5.0); Alkaline Phosphatase 184 U/L (45-117); Anion Gap 8 (5-15); BUN 8 mg/dL (7-18); BUN/Creat Ratio 16.1 RATIO (10-20); Calcium,Total 8.5 mg/dL (8.5-10.1); Chloride 110 mmol/L (98-107); EST Glomerular Filtration Rate 147 mL/min (>60); Est Glom Filt Rate - Afr Amer 178 mL/min (>60); Globulin 4.4 g/dL (2.2-4.2); Glucose 65 mg/dL (74-106); Protein, Total 6.8 g/dL (6.4-8.2); Sodium Level 141 mmol/L (136-145)
== END ==
PROVIDERS: PCP Student in an Organized Health Care Education/Training Program; Referring Provider Obstetrics & Gynecology; Visit Provider Obstetrics & Gynecology
DX: O13.9 Gestational [pregnancy-induced] hypertension without significant proteinuria, unspecified trimester (principal); Z3A.00 Weeks of gestation of pregnancy not specified
CPT/HCPCS: 36415; 80053; 82570; 84156; 85025

== ENCOUNTER → 2021-05-05 11:40 | Outpatient (CLI) | payer OTHER, SELFPAY ==
[2021-05-05 12:00] LABS: Absolute Lymphocyte Count 1.18 X10^3/uL (0.83-4.51); Absolute Neutrophil Count 4.3 X10^3/uL (2.0-7.7); Basophil# 0.01 X10^3/uL; Basophil% 0.2 % (0-1); Eosinophil# 0.18 X10^3/uL; Eosinophils% 2.9 % (0-5); Hematocrit 40.4 % (37-47); Hemoglobin 13.9 g/dL (12.0-15.0); Lymphocyte # 1.18 X10^3/ul (0.83-4.51); Lymphocyte % 18.8 % (19-41); Mean Corp Hgb Conc 34.4 g/dL (32-36); Mean Corpuscular Hgb 30.8 pg (27.0-32.0); Mean Corpuscular Volume 89.6 fL (81-99); Mean Platelet Vol. 10.3 fl (6.2-12.0); Monocyte# 0.61 X10^3/uL; Monocyte% 9.7 % (0-10); NRBC Flagged by Analyzer 0 % (0-5); Neutrophil # 4.27 X10^3/uL (2.7-7.7); Neutrophil % 68.1 % (47-70); Platelet Count 263 K/mm3 (150-450); RBC Distribution Width CV 13.2 % (11.6-14.6); RBC Distribution Width SD 43.6 fl (35.1-43.9); Red Blood Count 4.51 M/mm3 (4.2-5.4); White Blood Count 6.3 K/mm3 (4.4-11.0)
[2021-05-05 12:20] LABS: ALB/GLOB Ratio 0.6 RATIO (0.9-2.4); AST(SGOT) 45 U/L (15-37); Alanine Aminotransfer ALT/SGPT 27 U/L (13-56); Albumin, Serum 2.4 g/dL (3.2-5.0); Alkaline Phosphatase 271 U/L (45-117); Anion Gap 4 (5-15); BUN 10 mg/dL (7-18); BUN/Creat Ratio 17.9 RATIO (10-20); Calcium,Total 8.7 mg/dL (8.5-10.1); Chloride 112 mmol/L (98-107); Creatinine, Serum 0.56 mg/dL (0.55-1.02); EST Glomerular Filtration Rate 129 mL/min (>60); Est Glom Filt Rate - Afr Amer 156 mL/min (>60); Globulin 4.3 g/dL (2.2-4.2); Glucose 74 mg/dL (74-106); Potassium 4.1 mmol/L (3.5-5.1); Protein, Total 6.7 g/dL (6.4-8.2); Sodium Level 139 mmol/L (136-145)
[2021-05-05 12:51] LABS: Protein, Urine (Random) 15.6 mg/dL (<11.9); Protein:Creat Ratio 282 mg/g CRE (0-200)
== END ==
PROVIDERS: PCP Student in an Organized Health Care Education/Training Program; Referring Provider Obstetrics & Gynecology; Visit Provider Obstetrics & Gynecology
DX: O13.1 Gestational [pregnancy-induced] hypertension without significant proteinuria, first trimester (principal); Z3A.00 Weeks of gestation of pregnancy not specified
CPT/HCPCS: 36415; 80053; 82570; 84156; 85025

== ENCOUNTER 2021-05-06 17:48 | Observation (INO) | payer OTHER, SELFPAY ==
[2021-05-06] VITALS (12 sets, daily range): BP systolic 138–167; BP diastolic 75–94; PULSE 75–98; TEMP 37.1; O2SAT 98–99; BMI 47.9
[2021-05-06] MEDS: 0.9% Saline Lock 10 ML Syringe IV (16:15)
[2021-05-06 16:41] LABS: Hematocrit 40.2 % (37-47); Hemoglobin 13.5 g/dL (12.0-15.0); Mean Corp Hgb Conc 33.6 g/dL (32-36); Mean Corpuscular Hgb 30.2 pg (27.0-32.0); Mean Corpuscular Volume 89.9 fL (81-99); Mean Platelet Vol. 10.7 fl (6.2-12.0); Platelet Count 308 K/mm3 (150-450); RBC Distribution Width CV 13.2 % (11.6-14.6); RBC Distribution Width SD 43.3 fl (35.1-43.9); Red Blood Count 4.47 M/mm3 (4.2-5.4); White Blood Count 8.8 K/mm3 (4.4-11.0)
[2021-05-06 16:54] LABS: Prothrombin Time (Protime)PT. 12.1 SECONDS (11.7-14.9)
[2021-05-06 17:01] LABS: AST(SGOT) 46 U/L (15-37); Alanine Aminotransfer ALT/SGPT 29 U/L (13-56); EST Glomerular Filtration Rate 119 mL/min (>60); Est Glom Filt Rate - Afr Amer 144 mL/min (>60); Estimated Creatinine Clearance 119.01 ml/min; LDH 187 U/L (84-246); Uric Acid 5.3 mg/dL (2.6-6.0)
[2021-05-06 17:01] LABS: Protein, Urine (Random) 130.4 mg/dL (<11.9); Protein:Creat Ratio 454 mg/g CRE (0-200)
[2021-05-06] MEDS: NIFEdipine 30 MG Tablet PO (17:40)
--- NOTE | 2021-05-06 17:40 | US_ITS ---
STUDY: SECOND AND THIRD TRIMESTER OBSTETRICAL ULTRASOUND - LIMITED REASON FOR EXAM: Female, 36 years old GROWTH ULTRASOUND -- 32.5 GESTATION LMP: 09/19/2020 PRIOR ULTRASOUND: None. TECHNIQUE: Transabdominal TECHNICAL QUALITY: Adequate. FINDINGS: There is a single intrauterine fetus. The fetus is in a cephalic presentation. There is demonstrated cardiac activity with a heart rate of 167 bpm. There is a normal amniotic fluid volume. The largest amniotic fluid pocket measures 4.7 cm. The amniotic fluid index (MO) is 10.3 cm. The placenta is posterior. There are Grade 3 placental changes. The cervix measures 4.3 cm in length. BIOMETRY: BPD: 8.0 cm: 32 weeks, 1 days HC: 30.34 cm: 33 weeks, 5 days AC: 29.09 cm: 33 weeks, 0 days FL: 6.01 cm: 31 weeks, 1 days Age by LMP: 32 weeks, 5 days. ANGÉLICA by LMP: 06/26/2021. age by current US: 32 weeks, 2 days. ANGÉLICA by current US: 06/29/2021. Estimated weight: 1988 grams, +/- 298 grams, 34.1 percentile. US/OB Limited With Biometrics IMPRESSION: Single intrauterine with estimated gestational age by ultrasound of 32 weeks and 2 days and an ANGÉLICA of 06/29/2021. Electronically Signed: Ginette Bowles MD at 21:02 EDT Tel , Service support ,
--- NOTE | 2021-05-06 17:48 | HP.PCM.OB_ITS ---
HPI - General HPI Narrative ELIJAH DEWEY, is a 36 F at 32/5 who presents with elevated blood pressures. Blood pressures have been gradually increasing over the last couple of weeks. Was started on Procardia XL 30 mg daily yesterday. Was seen in the office today for a second dose of betamethasone and was found to have blood pres sures in the severe range. Sent to triage for evaluation and blood pressures persistently in the 150s with isolated severe range blood pressure. Denies headaches, blurred vision, chest pain, shortness of breath. Admitted for observation. Maternal Data Information ANGÉLICA Calculator Estimated Delivery Date Method Current WG Current Estimate 06/26/21 LMP (Certain) 32w 5d Other Estimates 06/23/21 Ultrasound #1 33w 1d PFSH PFS Medical History Chronic hypertension affecting GERD (gastroesophageal reflux disease) Gestational hypertension H/O hemorrhage, currently PCOS (polycystic ovarian syndrome) Home Medications vit no.[id number] 1 each PO DAILY 04/17/18 [History Last Taken 05/06/21 08:00] metformin 1,000 mg tablet 1,000 mg PO DAILY 04/23/20 [History Last Taken 05/06/21 08:00] omeprazole magnesium 20 mg tablet,delayed release 20 mg PO DAILY 04/23/20 [History Last Taken 05/06/21 08:00] betamethasone acetate and sodium phos 6 mg/mL suspension for injection 12 mg IM DAILY 2 Days #5 ml 05/05/21 [Rx Last Taken Unknown] nifedipine 30 mg tablet,extended release 24 hr 30 mg PO DAILY #30 tab 05/05/21 [Rx Last Taken 05/06/21 08:00] Allergy/AdvReac Type Severity Reaction Status Date / Time bacitracin Allergy Hives Verified 05/06/21 12:59 [From Neosporin ([id number])] neomycin Allergy Hives Verified 05/06/21 12:59 [From Neosporin ([id number])] polymyxin B Allergy Hives Verified 05/06/21 12:59 [From Neosporin ([id number])] Family History Father Heart disease Mother Heart disease Surgical History H/O section H/O dilation and curettage Social History adopted: No household members: family housing: house number of children: 2 current occupational status: employed current occupation: [employer] pets and animals: No history of recent travel: No sexually active: Yes Smoking Status: Never smoker second hand exposure: No alcohol intake: current alcohol intake frequency: holidays/special occasions only substance use type: does not use seatbelt use: always do you feel safe at home: Yes additional social history: - [place] History 4 Elective abortions Hx Para 2 Spontaneous abortions 1 Hx # Term Pregnancies Ectopic pregnancies Hx # Pregnancies Multiple births # of living children 2 Past Pregnancies Del. Date Name GA/Weeks Outcome Route Bth Weight Gen Labor Lgth Anesthesia Del Locatn Provider FOB Unknown 08/14/2013- Andres 39 live - full term 7l bs 6oz Male spinal Juan Jose Browne Unknown 04/17/2018- Zack 38 live - full term 7lbs 5oz Male spinal Dr. Galan [employer] [place] Delivery Date: GHTN- primary c/s due to macrosomia Chrissie Dillon Delivery Date: GHTN, elevated liver enzymes- going into HELLP syndrome; ATONY- post hemorrhage; banjo curette- tampon balloon EBL 800 over 3 liter from PP hemorrhage Chrissie Dillon Visit Details Expected Delivery Route/Plan RLTCS & BS with GP PP control planned: BS discussed possible routes of delivery and associated risks: [] special requests: [] Plans flu vaccine: no tdap vaccine: given rhogam: NA LARC form signed: yes Problem list reviewed and updated with the most current plan of care details and appropriate orders placed. Relevant counseling for the gestational age provided. Continue routine care and follow up unless otherwise noted in visit notes/problem list details OB Flowsheet Initial Weight: Not Recorded Date -?-?-?-?-?-?-?-?-?-?-?-?- EGA Weight BP Urine Prot -?--?-?-?-?-?-?-?-?-?-?-?- Glucose FHR FuHt Pres Dilation -?-?-?-?-?-?-?--?-?-?-?-?- Effaced St Visit Note 11/18/20 -?-?-?-?-?-?-?-?-?-?-?-?- 8w 4d 273 lb 4 oz 112/82 -?-?-?-?-?-?-?-?-?-?-?-?- 175 -?-?-?-?-?-?-?-?-?-?-?-?- GP - CRL 20mm co nsistent with LMP 12/16/20 -?-?-?-?-?-?-?-?-?-?-?-?- 12w 4d 273 lb 8 oz 130/84 Nega tive -?-?-?-?-?-?-?-?-?-?-?-?- Negative 150 -?-?-?-?-?-?-?-?-?-?-?-?- GP - no cramping or bleeding. Has had multiple episodes of blurred vision while sitting. Not associated with hunger, fatigue, or dehydration. Always returns to normal within ~20min. Counseled to contact PCP. PRR. Anatomy ordered. 01/13/21 -?-?-?-?-?-?-?-?-?-?-?-?- 16w 4d 276 lb 132/84 Negative -?-?-?-?-?-?-?-?-?-?-?-?- Negative 160 -?-?-?-?-?-?-?-?-?-?-?-?- GP - no cramping or bleeding. +FM. Anatomy scheduled. NIPT nl. 02/10/21 -?-?-?-?-?-?-?-?-?-?-?-?- 20w 4d 277 lb 8 oz 132/86 Nega tive -?-?-?-?-?-?-?-?-?-?-?-?- Negative 150 -?-?-?-?-?-?-?-?-?-?-?-?- GP - no LOF, VB, DFM, ctx. Anatomy scan yesterday - told by MFM was normal. 03/11/21 -?-?-?-?-?-?-?-?-?-?-?-?- 24w 5d 278 lb 2 oz 128/86 Nega tive -?-?-?-?-?-?-?-?-?-?-?-?- Negative 140 -?-?-?-?-?-?-?-?-?-?-?-?- GP - no LOF, VB, DFM, ctx. Discussed timing of c/s. 04/07/21 -?-?-?-?-?-?-?-?-?-?-?-?- 28w 4d 283 lb 4 oz 138/88 Trac e -?-?-?-?-?-?-?-?-?-?-?-?- Negative 141 29 -?-?-?-?-?-?-?-?-?-?-?-?- MH-No Vb, LOF. G ood FM. Some BH CTX-PTL sx reviewed. Larc, tdap. Nl 28 wk labs. 04/21/21 -?-?-?-?-?-?-?-?-?-?-?-?- 30w 4d 290 lb 150/100 Negative -?--?-?-?-?-?-?-?-?-?-?-?- Negative 140 30 -?-?-?-?-?-?-?-?-?-?-?-?- GP - no ctx. LOF , VB, dFM. BP elevated but had stressful night. Asymptomatic. Will start home BP monitoring. GP - no ctx. LOF, VB, dFM. B P elevated but had stressful night. Asymptomatic. Will start home BP monitoring. Outpatient labs ordered. 05/05/21 -?-?-?-?-?-?-?-?-?-?-?-?- 32w 4d 297 lb 8 oz 166/104 Nega tive -?-?-?-?-?-?-?-?-?-?-?-?- Negative 130 -?-?-?-?-?-?-?-?-?-?-?-?- GP - no LOF, VB, DFM, ctx. BPs consistently elevated at home and in office. Plan BMZ today. Plan 2x/wk NSTs and labs. Started Procardia XL 30mg. 05/06/21 -?-?-?-?-?-?-?-?-?-?-?-?- 32w 5d 296 lb 4 oz 168/104 -?-?-?-?-?-?-?-?-?-?-?-?- -?-?-?-?-?-?-?-?-?-?-?-?- GP - RN visit fo r second dose of BMZ. BP severe range. Sent to triage for eval. 05/06/21 -?--?-?-?-?-?-?-?-?-?-?-?- 32w 5d 297 lb 151/92 156/89 161/94 155/86 154/88 167/89 -?-?-?-?-?-?-?-?-?-?-?-?- -?-?-?-?-?-?-?-?-?-?-?-?- GP - admitted fo r elevated BPs. NST FHR Rate Baby A Baseline: 130 Variability:: Moderate Accelerations:: 15 x 15 Decelerations:: None NST Reactive:: Yes FHR Category:: Category I Uterine Activity:: none ROS Eyes Eyes: Reports systems reviewed and no addt'l complaints, except as documented ENT HEENT: Reports systems reviewed and no addt'l complaints, except as documented Cardiovascular Cardiovascular: Reports systems reviewed and no addt'l complaints, except as documented Respiratory/Chest Respiratory/Chest: Reports systems reviewed and no addt'l complaints, except as documented Gastrointestinal Gastrointestinal: Reports systems reviewed and no addt'l complaints, except as documented Genitourinary Genitourinary: Reports systems reviewed and no addt'l complaints, except as documented Musculoskeletal Musculoskeletal: Reports systems reviewed and no addt'l complaints, except as documented Integumentary Integumentary: Reports systems reviewed and no addt'l complaints, except as documented Neurologic Neurologic: Reports systems reviewed and no addt'l complaints, except as documented Psychiatric Psychiatric: Reports systems reviewed and no addt'l complaints, except as documented Endocrine Endocrinology: Reports systems reviewed and no addt'l complaints, except as documented Hematologic/Lymphatic Hematologic/Lymphatic: Reports systems reviewed and no addt'l complaints, except as documented Allergic/Immunologic Allergic/Immunologic: Reports systems reviewed and no addt'l complaints, except as documented Vital Signs Vital Signs Vital Signs: 05/06/21 16:05 05/06/21 16:24 05/06/21 16:36 Pulse Rate 98 94 86 Blood Pressure 151/92 H 156/89 H 161/94 H BP Systolic 151 156 161 BP Diastolic 92 89 94 05/06/21 16:51 05/06/21 17:06 05/06/21 17:37 Pulse Rate 82 85 85 Blood Pressure 155/86 H 154/88 H 167/89 H BP Systolic 155 154 167 BP Diastolic 86 88 89 Weight Weight: 297 lb Body Mass Index (BMI) 47.9 Physical Exam Const alert, oriented x3, no apparent distress, average body habitus, healthy appearing and well nourished HEENT normocephalic and moist oral mucous membranes Head and Scalp: atraumatic Eyes PERRL and EOMs intact bilaterally Neck full ROM Resp normal respiratory effort, no retractions and no use of accessory muscles Cardio regular rate and regular rhythm GI soft to palpation, non-tender and non-distended Extremity normal to inspection and full ROM Skin no rashes or lesions noted Neuro no focal motor deficits and no sensory deficits noted Psych mental status grossly normal, affect normal, speech normal and activity/motor behavior normal Labs Labs Labs: Blood Type O POSITIVE Antibody Screen NEGATIVE Hct 40.2 % (37-47) Hgb 13.5 g/dL (12.0-15.0) Obstetrics US Syphilis Total Ab Non-reactive Rubella IgG Antibody Reactive (Nonreactive) Hep Bs Antigen Non-Reactive (Nonreactive) Neisseria gonorrhoeae DNA (PABLO) Negative (Negative) HIV 1&2 Antibody Non-Reactive (Nonreactive) C.trachomatis DNA (PCR) Negative (Negative) Glucose 1 Hr 50 gm 114 mg/dL (70-140) Rhogam given: No Miscellaneous Test Assessment & Plan (1) Preeclampsia: COMMENT: UPC 424 on 05/06. started Procardia XL 30mg on 05/05. Increased to 60mg 05/06. PLAN: Patient admitted for observation due to increasing blood pressures Was started on Procardia XL 30 mg daily which she took for the first time this morning. Blood pressure is high 150s with isolated 160 since arrival. Will increase Procardia XL to 60 mg daily. Growth ultrasound ordered for today Plan repeat labs in the morning At this point ruling out preeclampsia with severe features. If spikes persistent severe range blood pressures, would start magnesium sulfate with plan for inpatient until delivery. If heart rate tracing remains category 1, and can de-escalate monitoring to nonstress test twice a day General diet (2) : QUALIFIERS: Weeks of gestation: 32 weeks Qualified Code(s): Z3A.32 - 32 weeks gestation of COMMENT: genetic- low risk; DOES NOT WANT TO KNOW GENDER, declines carrier, anatomy nl (3) Post traumatic stress disorder (PTSD): COMMENT: from post hemorrhage- was on Cymbalta not currently (4) Sterilization: COMMENT: desires tubal at time of C/S (5) Obesity affecting : QUALIFIERS: Trimester: second trimester Qualified Code(s): O99.212 - Obesity complicating , second trimester COMMENT: BMI 45 - GCT passed at [facility] (6) Supervision of high risk , antepartum: COMMENT: PRR ANGÉLICA 06/26/21 PC: Zack Campos Spouse: [place] (7) AMA (advanced maternal age) multigravida 35+: QUALIFIERS: Trimester: first trimester Qualified Code(s): O09.521 - Supervision of elderly multigravida, first trimester COMMENT: Desires NIPT (8) H/O HELLP syndrome, currently : COMMENT: elevated liver enzymes, PLT ok at time of 2018 C/S. Discussed ASA to decrease risk. Previously caused GI upsety. Will try enteric coated ASA. (9) hemorrhage: QUALIFIERS: hemorrhage type: unspecified Qualified Code(s): O72.1 - Other immediate hemorrhage COMMENT: 3L after second (not intra-op). Required banjo and bakri balloon. declined blood transfusion- would be willing to get transfusion this time (10) H/O section: COMMENT: x2. Both for severe no cervical dilation with need for delivery (PreE/HELLP). Planning RCD unless active labor.
[2021-05-07] VITALS (10 sets, daily range): BP systolic 132–156; BP diastolic 78–89; PULSE 63–77; TEMP 36.4–37; O2SAT 99–100
[2021-05-07 05:24] LABS: Absolute Lymphocyte Count 1.31 X10^3/uL (0.83-4.51); Absolute Neutrophil Count 6.4 X10^3/uL (2.0-7.7); Basophil# 0.01 X10^3/uL; Basophil% 0.1 % (0-1); Eosinophil# 0.01 X10^3/uL; Eosinophils% 0.1 % (0-5); Hematocrit 39.1 % (37-47); Lymphocyte # 1.31 X10^3/ul (0.83-4.51); Lymphocyte % 15.5 % (19-41); Mean Corp Hgb Conc 33.2 g/dL (32-36); Mean Corpuscular Hgb 30.6 pg (27.0-32.0); Mean Platelet Vol. 10.5 fl (6.2-12.0); Monocyte# 0.67 X10^3/uL; Monocyte% 7.9 % (0-10); NRBC Flagged by Analyzer 0 % (0-5); Neutrophil # 6.42 X10^3/uL (2.7-7.7); Neutrophil % 75.9 % (47-70); Platelet Count 290 K/mm3 (150-450); RBC Distribution Width CV 13.4 % (11.6-14.6); RBC Distribution Width SD 45.1 fl (35.1-43.9); Red Blood Count 4.25 M/mm3 (4.2-5.4); White Blood Count 8.5 K/mm3 (4.4-11.0)
[2021-05-07 06:02] LABS: ALB/GLOB Ratio 0.6 RATIO (0.9-2.4); AST(SGOT) 40 U/L (15-37); Alanine Aminotransfer ALT/SGPT 26 U/L (13-56); Albumin, Serum 2.3 g/dL (3.2-5.0); Alkaline Phosphatase 254 U/L (45-117); Anion Gap 7 (5-15); BUN 9 mg/dL (7-18); BUN/Creat Ratio 16.9 RATIO (10-20); Calcium,Total 8.3 mg/dL (8.5-10.1); Chloride 111 mmol/L (98-107); Creatinine, Serum 0.53 mg/dL (0.55-1.02); EST Glomerular Filtration Rate 136 mL/min (>60); Est Glom Filt Rate - Afr Amer 165 mL/min (>60); Estimated Creatinine Clearance 134.73 ml/min; Globulin 4.1 g/dL (2.2-4.2); Glucose 119 mg/dL (74-106); LDH 166 U/L (84-246); Protein, Total 6.4 g/dL (6.4-8.2); Sodium Level 139 mmol/L (136-145)
[2021-05-07] MEDS: NIFEdipine 60 MG Tablet PO (08:51)
--- NOTE | 2021-05-07 10:08 | PCM.PN.OB ---
Subjective Subjective Patient seen and examined. Reports overall still feeling well. Still feeling very jittery after BMZ. Denies headaches, blurred vision, chest pain, shortness of breath. Objective Data Objective Data Vital Signs: Vital Signs Temp Pulse BP Pulse Ox 97.6 F L 75 153/86 H 100 05/07/21 07:52 05/07/21 10:06 05/07/21 10:06 05/07/21 10:05 Weight: 297 lb Body Mass Index (BMI) 47.9 Lab / Micro Data Result Diagrams: 05/07/21 05:10 05/07/21 05:10 Labs: Laboratory Results - last 24 hr 05/06/21 16:15: U Random Total Protein 130.4 H, Urine Creatinine 287.00, Protein/Creatinin Ratio 454 H 05/06/21 16:24: WBC 8.8, RBC 4.47, Hgb 13.5, Hct 40.2, MCV 89.9, MCH 30.2, MCHC 33.6, RDW Std Deviation 43.3, RDW Coeff of Bhavin 13.2, Plt Count 308, MPV 10.7 05/06/21 16:24: Creatinine 0.60, Estim Creat Clear Calc 119.01, Est GFR (MDRD) Af Amer 144, Est GFR (MDRD) Non-Af 119, Uric Acid 5.3, AST 46 H, ALT 29, Lactate Dehydrogenase 187 05/06/21 16:24: PT 12.1, INR 1.0, APTT 29.0 05/07/21 05:10: WBC 8.5, RBC 4.25, Hgb 13.0, Hct 39.1, MCV 92.0, MCH 30.6, MCHC 33.2, RDW Std Deviation 45.1 H, RDW Coeff of Bhavin 13.4, Plt Count 290, MPV 10.5, Immature Gran % (Auto) 0.500, Neut % (Auto) 75.9 H, Lymph % (Auto) 15.5 L, [place] % (Auto) 7.9, Eos % (Auto) 0.1, Baso % (Auto) 0.1, Absolute Neuts (auto) 6.4, Absolute Lymphs (auto) 1.31, Nucleated RBC % 0 05/07/21 05:10: Sodium 139, Potassium 4.0, Chloride 111 H, Carbon Dioxide 21.0, Anion Gap 7, BUN 9, Creatinine 0.53 L, Estim Creat Clear Calc 134.73, Est GFR (MDRD) Af Amer 165, Est GFR (MDRD) Non-Af 136, BUN/Creatinine Ratio 16.9, Glucose 119 H, Calcium 8.3 L, Total Bilirubin 0.20, AST 40 H, ALT 26, Alkaline Phosphatase 254 H, Lactate Dehydrogenase 166, Total Protein 6.4, Albumin 2.3 L, Globulin 4.1, Albumin/Globulin Ratio 0.6 L Radiography Diagnostic Testing: Radiology Impression Obstetrics Ultrasound 05/06/21 17:40 IMPRESSION: Single intrauterine with estimated gestational age by ultrasound of 32 weeks and 2 days and an ANGÉLICA of 06/29/2021. Electronically Signed: Ginette Bowles MD at 21:02 EDT Tel , Service support , ROS Constitutional Constitutional: Denies fever(s) Cardiovascular Cardiovascular: Denies chest pain, dyspnea or lightheadedness Gastrointestinal Gastrointestinal: Denies abdominal pain, constipation or diarrhea Neurologic Neurologic: Denies dizziness or headache(s) Physical Exam Const alert, oriented x3, no apparent distress, average body habitus, healthy appearing and well nourished HEENT normocephalic Head and Scalp: atraumatic Eyes PERRL and EOMs intact bilaterally Neck full ROM Lymph Lymphatic: no lymphadenopathy noted Resp normal respiratory effort, no retractions and no use of accessory muscles Cardio regular rate GI soft to palpation, non-tender and non-distended Extremity normal to inspection and no clubbing, cyanosis or edema Skin no rashes or lesions noted Neuro no focal motor deficits and no sensory deficits noted Psych mental status grossly normal, affect normal and speech normal NST FHR Rate Baby A Baseline: 130 Variability:: Moderate Accelerations:: 15 x 15 Decelerations:: None NST Reactive:: Yes FHR Category:: Category I Uterine Activity:: None Assessment & Plan (1) Preeclampsia: QUALIFIERS: Trimester: third trimester Qualified Code(s): O14.93 - Unspecified pre-eclampsia, third trimester COMMENT: UPC 424 on 05/06. started Procardia XL 30mg on 05/05. Increased to 60mg 05/06. Admitted 05/06-05/07. Plan repeat PreE labs on Monday. Plan 2x/wk PreE labs and NSTs. Plan 1x/wk BPP. Delivery by 37w. PLAN: PreE labs remain normal aside from mildly elevated AST which is chronic P:C elevated yesterday at 424 Growth ultrasound normal - did demonstrate grade 3 placental changes but normal MO BPs mild range to normal since changing Procardia XL to 60mg s/p BMZx2 05/05&05/06 Had discussion with patient regarding plan of care. Discussed that typically when patients have Preeclampsia and are on medication recommendation would be for inpatient management until delivery, but given patient compliance and close proximity to hospital feel that it is reasonable to attempt a trial of outpatient management. Discussed need for close monitoring of labs, symptoms, and well being as well as 2x/day BP checks. Also recommend that patient remain off of work until delivery given concerns that this will worsen her blood pressures. Patient agreeable to close outpatient monitoring. Warning signs reviewed with patient. Will also have return for outpatient labs on Monday to ensure remain stable. All questions answered. Discussed once start to notice worsening BPs, it is still highly possible that she will require delivery prior to 37 weeks, but this is the absolute farthest she would be allowed to go with . (2) : QUALIFIERS: Weeks of gestation: 32 weeks Qualified Code(s): Z3A.32 - 32 weeks gestation of COMMENT: genetic- low risk; DOES NOT WANT TO KNOW GENDER, declines carrier, anatomy nl (3) Sterilization: COMMENT: desires tubal at time of C/S (4) Post traumatic stress disorder (PTSD): COMMENT: from post hemorrhage- was on Cymbalta not currently (5) Obesity affecting : QUALIFIERS: Trimester: second trimester Qualified Code(s): O99.212 - Obesity complicating , second trimester COMMENT: BMI 45 - GCT passed at NOB (6) Supervision of high risk , antepartum: COMMENT: PRR ANGÉLICA 06/26/21 PC: Zack Campos Spouse: Pavan (7) AMA (advanced maternal age) multigravida 35+: QUALIFIERS: Trimester: first trimester Qualified Code(s): O09.521 - Supervision of elderly multigravida, first trimester COMMENT: Desires NIPT (8) H/O HELLP syndrome, currently : COMMENT: elevated liver enzymes, PLT ok at time of 2018 C/S. Discussed ASA to decrease risk. Previously caused GI upsety. Will try enteric coated ASA. (9) hemorrhage: QUALIFIERS: hemorrhage type: unspecified Qualified Code(s): O72.1 - Other immediate hemorrhage COMMENT: 3L after second (not intra-op). Required banjo and bakri balloon. declined blood transfusion- would be willing to get transfusion this time (10) H/O section: COMMENT: x2. Both for severe no cervical dilation with need for delivery (PreE/HELLP). Planning RCD unless active labor.
== END 2021-05-07 12:30 | disposition home or self-care (01) ==
LOC: WPOUT 05-11 14:41 → WP 05-11 14:41
PROVIDERS: Admitting Provider Obstetrics & Gynecology; PCP Student in an Organized Health Care Education/Training Program; Referring Provider Obstetrics & Gynecology; Visit Provider Obstetrics & Gynecology
DX: O14.13 Severe pre-eclampsia, third trimester (principal); Z3A.32 32 weeks gestation of pregnancy
CPT/HCPCS: 36415; 59025; 59050; 76816; 80053; 82565; 82570; 83615; 84156; 84450; 84460; 84550; 85025; 85027; 85610; 85730; 99218; A4216; G0378

== ENCOUNTER → 2021-05-09 15:21 | Outpatient (CLI) | payer OTHER, SELFPAY ==
[2021-05-09 15:41] LABS: Absolute Lymphocyte Count 1.13 X10^3/uL (0.83-4.51); Absolute Neutrophil Count 6.7 X10^3/uL (2.0-7.7); Basophil# 0.01 X10^3/uL; Basophil% 0.1 % (0-1); Eosinophil# 0.14 X10^3/uL; Eosinophils% 1.6 % (0-5); Hematocrit 41.8 % (37-47); Hemoglobin 14.4 g/dL (12.0-15.0); Lymphocyte # 1.13 X10^3/ul (0.83-4.51); Lymphocyte % 13.2 % (19-41); Mean Corp Hgb Conc 34.4 g/dL (32-36); Mean Corpuscular Hgb 30.7 pg (27.0-32.0); Mean Corpuscular Volume 89.1 fL (81-99); Mean Platelet Vol. 10.4 fl (6.2-12.0); Monocyte# 0.62 X10^3/uL; Monocyte% 7.2 % (0-10); NRBC Flagged by Analyzer 0 % (0-5); Neutrophil # 6.65 X10^3/uL (2.7-7.7); Neutrophil % 77.4 % (47-70); Platelet Count 302 K/mm3 (150-450); RBC Distribution Width CV 13.2 % (11.6-14.6); RBC Distribution Width SD 42.4 fl (35.1-43.9); Red Blood Count 4.69 M/mm3 (4.2-5.4); White Blood Count 8.6 K/mm3 (4.4-11.0)
[2021-05-09 16:00] LABS: Protein, Urine (Random) 9.7 mg/dL (<11.9); Protein:Creat Ratio 228 mg/g CRE (0-200)
[2021-05-09 16:08] LABS: ALB/GLOB Ratio 0.6 RATIO (0.9-2.4); AST(SGOT) 38 U/L (15-37); Alanine Aminotransfer ALT/SGPT 24 U/L (13-56); Albumin, Serum 2.4 g/dL (3.2-5.0); Alkaline Phosphatase 274 U/L (45-117); Anion Gap 8 (5-15); BUN 8 mg/dL (7-18); BUN/Creat Ratio 12.7 RATIO (10-20); Calcium,Total 8.7 mg/dL (8.5-10.1); Chloride 109 mmol/L (98-107); Creatinine, Serum 0.63 mg/dL (0.55-1.02); EST Glomerular Filtration Rate 113 mL/min (>60); Est Glom Filt Rate - Afr Amer 136 mL/min (>60); Globulin 4.3 g/dL (2.2-4.2); Glucose 103 mg/dL (74-106); LDH 162 U/L (84-246); Protein, Total 6.7 g/dL (6.4-8.2); Sodium Level 140 mmol/L (136-145)
== END ==
PROVIDERS: PCP Student in an Organized Health Care Education/Training Program; Visit Provider Obstetrics & Gynecology
DX: O14.93 Unspecified pre-eclampsia, third trimester (principal); Z3A.00 Weeks of gestation of pregnancy not specified
CPT/HCPCS: 36415; 80053; 82570; 83615; 84156; 85025

== ENCOUNTER → 2021-05-11 09:58 | Outpatient (CLI) | payer OTHER, SELFPAY ==
[2021-05-11 10:10] LABS: Absolute Lymphocyte Count 1.37 X10^3/uL (0.83-4.51); Absolute Neutrophil Count 4.6 X10^3/uL (2.0-7.7); Basophil# 0.01 X10^3/uL; Basophil% 0.1 % (0-1); Eosinophil# 0.16 X10^3/uL; Eosinophils% 2.3 % (0-5); Hematocrit 43.7 % (37-47); Hemoglobin 14.8 g/dL (12.0-15.0); Lymphocyte # 1.37 X10^3/ul (0.83-4.51); Mean Corp Hgb Conc 33.9 g/dL (32-36); Mean Corpuscular Hgb 30.7 pg (27.0-32.0); Mean Corpuscular Volume 90.7 fL (81-99); Mean Platelet Vol. 10.3 fl (6.2-12.0); Monocyte% 10.2 % (0-10); NRBC Flagged by Analyzer 0 % (0-5); Neutrophil # 4.57 X10^3/uL (2.7-7.7); Platelet Count 295 K/mm3 (150-450); RBC Distribution Width CV 13.2 % (11.6-14.6); RBC Distribution Width SD 43.8 fl (35.1-43.9); Red Blood Count 4.82 M/mm3 (4.2-5.4); White Blood Count 6.8 K/mm3 (4.4-11.0)
[2021-05-11 10:27] LABS: ALB/GLOB Ratio 0.5 RATIO (0.9-2.4); AST(SGOT) 38 U/L (15-37); Alanine Aminotransfer ALT/SGPT 23 U/L (13-56); Albumin, Serum 2.2 g/dL (3.2-5.0); Alkaline Phosphatase 344 U/L (45-117); Anion Gap 5 (5-15); BUN 7 mg/dL (7-18); BUN/Creat Ratio 12.7 RATIO (10-20); Calcium,Total 8.5 mg/dL (8.5-10.1); Chloride 109 mmol/L (98-107); Creatinine, Serum 0.55 mg/dL (0.55-1.02); EST Glomerular Filtration Rate 131 mL/min (>60); Est Glom Filt Rate - Afr Amer 158 mL/min (>60); Globulin 4.4 g/dL (2.2-4.2); Glucose 93 mg/dL (74-106); Potassium 3.9 mmol/L (3.5-5.1); Protein, Total 6.6 g/dL (6.4-8.2); Sodium Level 139 mmol/L (136-145)
[2021-05-11 11:05] LABS: Creatinine, Urine (random) < 13.00 mg/dL (NO RANGE EST.); Protein, Urine (Random) < 6.0 mg/dL (<11.9)
== END ==
PROVIDERS: Nurse Practitioner Women's Health; PCP Student in an Organized Health Care Education/Training Program; Referring Provider Obstetrics & Gynecology; Visit Provider Obstetrics & Gynecology
DX: O13.1 Gestational [pregnancy-induced] hypertension without significant proteinuria, first trimester (principal); Z3A.00 Weeks of gestation of pregnancy not specified
CPT/HCPCS: 36415; 80053; 82570; 84156; 85025

== ENCOUNTER → 2021-05-11 | Outpatient (CLI) | payer OTHER, SELFPAY ==
[2021-05-11 10:01] LABS: Creatinine, Urine (random) < 13.00 mg/dL (NO RANGE EST.); Protein, Urine (Random) < 6.0 mg/dL (<11.9)
== END | disposition home or self-care (01) ==
LOC: LABSPEC 09:41
PROVIDERS: PCP Student in an Organized Health Care Education/Training Program; Referring Provider Nurse Practitioner Women's Health; Visit Provider Nurse Practitioner Women's Health
DX: O13.1 Gestational [pregnancy-induced] hypertension without significant proteinuria, first trimester (principal); Z3A.00 Weeks of gestation of pregnancy not specified
CPT/HCPCS: 82570; 84156

== ENCOUNTER → 2021-05-13 08:53 | Outpatient (CLI) | payer OTHER, SELFPAY ==
--- NOTE | 2021-05-13 08:56 | US_ITS ---
STUDY: OBSTETRICAL ULTRASOUND - BIOPHYSICAL PROFILE REASON FOR EXAM: Female, 36 years old BPP LMP: 09/19/2020. PRIOR ULTRASOUND: Comparison is made with prior examination of 05/06/2021. TECHNIQUE: Transabdominal TECHNICAL QUALITY: Adequate. FINDINGS: There is a single intrauterine fetus. The fetus is in a cephalic presentation. There is demonstrated cardiac activity with a heart rate of 150 bpm. There is a normal amniotic fluid volume. The largest amniotic fluid pocket measures 5 cm. The amniotic fluid index (MO) is 13.1 cm. The placenta is posterior in location and is not low lying. There are Grade 3 placental changes. Age by LMP: 33 weeks, 5 days. ANGÉLICA by LMP: 06/26/2021. BIOPHYSICAL PROFILE: Breathing Movements (FBM): 2 Gross Body Movements (GBM): 2 Tone (FT): 2 Amniotic Fluid Volume (AFV): 2 TOTAL SCORE: / US/Biophysical Prof W/O Non Stres IMPRESSION: Normal biophysical profile of 04/11. Electronically Signed: Margarito Kinney MD at 11:57 EDT , Service support ,
== END ==
PROVIDERS: PCP Student in an Organized Health Care Education/Training Program; Referring Provider Obstetrics & Gynecology; Visit Provider Obstetrics & Gynecology
DX: O09.293 Supervision of pregnancy with other poor reproductive or obstetric history, third trimester (principal); O09.513 Supervision of elderly primigravida, third trimester; O14.93 Unspecified pre-eclampsia, third trimester; Z3A.33 33 weeks gestation of pregnancy
CPT/HCPCS: 76819

== ENCOUNTER → 2021-05-13 10:02 | Outpatient (CLI) | payer OTHER, SELFPAY ==
[2021-05-13 10:22] LABS: Absolute Lymphocyte Count 1.45 X10^3/uL (0.83-4.51); Absolute Neutrophil Count 4.9 X10^3/uL (2.0-7.7); Basophil# 0.02 X10^3/uL; Basophil% 0.3 % (0-1); Eosinophil# 0.21 X10^3/uL; Eosinophils% 2.9 % (0-5); Hematocrit 44.1 % (37-47); Hemoglobin 15.2 g/dL (12.0-15.0); Lymphocyte # 1.45 X10^3/ul (0.83-4.51); Lymphocyte % 19.9 % (19-41); Mean Corp Hgb Conc 34.5 g/dL (32-36); Mean Corpuscular Hgb 30.8 pg (27.0-32.0); Mean Corpuscular Volume 89.5 fL (81-99); Mean Platelet Vol. 10.3 fl (6.2-12.0); Monocyte% 9.6 % (0-10); NRBC Flagged by Analyzer 0 % (0-5); Neutrophil # 4.85 X10^3/uL (2.7-7.7); Neutrophil % 66.7 % (47-70); Platelet Count 316 K/mm3 (150-450); RBC Distribution Width CV 13.2 % (11.6-14.6); RBC Distribution Width SD 42.6 fl (35.1-43.9); Red Blood Count 4.93 M/mm3 (4.2-5.4); White Blood Count 7.3 K/mm3 (4.4-11.0)
[2021-05-13 10:31] LABS: Protein, Urine (Random) 31.5 mg/dL (<11.9); Protein:Creat Ratio 858 mg/g CRE (0-200)
[2021-05-13 10:37] LABS: ALB/GLOB Ratio 0.5 RATIO (0.9-2.4); AST(SGOT) 39 U/L (15-37); Alanine Aminotransfer ALT/SGPT 24 U/L (13-56); Albumin, Serum 2.3 g/dL (3.2-5.0); Alkaline Phosphatase 386 U/L (45-117); Anion Gap 6 (5-15); BUN 8 mg/dL (7-18); Calcium,Total 8.5 mg/dL (8.5-10.1); Chloride 111 mmol/L (98-107); Creatinine, Serum 0.47 mg/dL (0.55-1.02); EST Glomerular Filtration Rate 157 mL/min (>60); Est Glom Filt Rate - Afr Amer 190 mL/min (>60); Globulin 4.6 g/dL (2.2-4.2); Glucose 92 mg/dL (74-106); Potassium 4.1 mmol/L (3.5-5.1); Protein, Total 6.9 g/dL (6.4-8.2); Sodium Level 138 mmol/L (136-145)
== END ==
PROVIDERS: PCP Student in an Organized Health Care Education/Training Program; Referring Provider Obstetrics & Gynecology; Visit Provider Obstetrics & Gynecology
DX: O14.93 Unspecified pre-eclampsia, third trimester (principal); O09.293 Supervision of pregnancy with other poor reproductive or obstetric history, third trimester; O09.513 Supervision of elderly primigravida, third trimester; Z3A.00 Weeks of gestation of pregnancy not specified
CPT/HCPCS: 36415; 80053; 82570; 84156; 85025

== ENCOUNTER 2021-05-17 18:40 | Inpatient (IN) | payer OTHER, SELFPAY ==
[2021-05-17] VITALS (56 sets, daily range): BP systolic 133–197; BP diastolic 75–127; PULSE 85–132; RESP 18–20; TEMP 36.3–37.2; O2SAT 85–100; BMI 44.5
--- NOTE | 2021-05-17 18:36 | HP.PCM.OB_ITS ---
HPI - General HPI Narrative ELIJAH DEWEY, is a 36 F at 34/2 who presents with elevated blood pressures and was diagnosed with preeclampsia with severe features for persistent severe range blood pressures Maternal Data Information NAGÉLICA Calculator Estimated Delivery Date Method Current WG Current Estimate 06/26/21 LMP (Certain) 34w 2d Other Estimates 06/23/21 Ultrasound #1 34w 5d PFSH PFSH Medical History Chronic hypertension affecting GERD (gastroesophageal reflux disease) Gestational hypertension H/O hemorrhage, currently PCOS (polycystic ovarian syndrome) Home Medications vit no.[id number] 1 each PO DAILY 04/17/18 [History Last Taken 05/17/21] metformin 1,000 mg tablet 1,000 mg PO DAILY 04/23/20 [History Last Taken 05/17/21] omeprazole magnesium 20 mg tablet,delayed release 20 mg PO DAILY 04/23/20 [History Last Taken 05/17/21] nifedipine [Procardia XL] 60 mg PO DAILY #60 tab 05/07/21 [Rx Last Taken 05/17/21] Allergy/AdvReac Type Severity Reaction Status Date / Time bacitracin Allergy Hives Verified 05/17/21 15:50 [From Neosporin ([id number])] neomycin Allergy Hives Verified 05/17/21 15:50 [From Neosporin ([id number])] polymyxin B Allergy Hives Verified 05/17/21 15:50 [From Neosporin ([id number])] Family History Father Heart disease Mother Heart disease Surgical History H/O section H/O dilation and curettage Social History adopted: No household members: family housing: house number of children: 2 current occupational status: employed current occupation: [employer] pets and animals: No history of recent travel: No sexually active: Yes Smoking Status: Never smoker second hand exposure: No alcohol intake: current alcohol intake frequency: holidays/special occasions only substance use type: does not use seatbelt use: always do you feel safe at home: Yes additional social history: - [place] History 4 Elective abortions Hx Para 2 Spontaneous abortions 1 Hx # Term Pregnancies Ectopic pregnancies Hx # Pregnancies Multiple births # of living children 2 Past Pregnancies Del. Date Name GA/Weeks Outcome Route Bth Weight Gen Labor Lgth Anesthesia Del Locatn Provider FOB Unknown 08/14/2013- Andres 39 live - full term 7l bs 6oz Male spinal Juan Jose Browne Unknown 04/17/2018- Zack 36 live - full term 7lbs 5oz Male spinal Dr. Galan [employer] [place] Delivery Date: GHTN- primary c/s due to macrosomia Chrissie Dillon Delivery Date: GHTN, elevated liver enzymes- going into HELLP syndrome; ATONY- post hemorrhage; banjo curette- tampon balloon EBL 800 over 3 liter from PP hemorrhage Chrissie Dillon Visit Details Expected Delivery Route/Plan RLTCS & BS with GP PP control planned: BS Plans flu vaccine: no tdap vaccine: given rhogam: NA LARC form signed: yes Problem list reviewed and updated with the most current plan of care details and appropriate orders placed. Relevant counseling for the gestational age provided. Continue routine care and follow up unless otherwise noted in visit notes/problem list details OB Flowsheet Initial Weight: Not Recorded Date -?-?-?-?-?-?-?-?-?-?-?-?- EGA Weight BP Urine Prot -?-?-?-?-?-?-?-?-?-?-?-?- Glucose FHR FuHt Pres Dilation -?-?-?-?-?-?-?-?-?-?-?-?- Effaced St Visit Note 11/18/20 -?-?-?-?-?-?-?-?-?-?-?-?- 8w 4d 273 lb 4 oz 112/82 -?-?-?-?-?-?-?-?-?-?--?-?- 175 -?-?-?-?-?-?-?-?-?-?-?-?- GP - CRL 20mm co nsistent with LMP 12/16/20 -?-?-?-?-?-?-?-?-?-?-?-?- 12w 4d 273 lb 8 oz 130/84 Nega tive -?-?-?-?-?-?-?-?-?-?-?-?- Negative 150 -?-?-?-?-?-?-?-?-?-?-?-?- GP - no cramping or bleeding. Has had multiple episodes of blurred vision while sitting. Not associated with hunger, fatigue, or dehydration. Always returns to normal within ~20min. Counseled to contact PCP. PRR. Anatomy ordered. 01/13/21 -?-?-?-?-?-?-?-?-?-?-?-?- 16w 4d 276 lb 132/84 Negative -?-?-?-?-?-?-?-?-?-?-?-?- Negative 160 -?-?-?-?-?-?-?-?-?-?-?-?- GP - no cramping or bleeding. +FM. Anatomy scheduled. NIPT nl. 02/10/21 -?-?-?-?-?-?-?-?-?-?-?-?- 20w 4d 277 lb 8 oz 132/86 Nega tive -?-?-?-?-?-?-?-?-?-?-?-?- Negative 150 -?--?-?-?-?-?-?-?-?-?-?-?- GP - no LOF, VB, DFM, ctx. Anatomy scan yesterday - told by MFM was normal. 03/11/21 -?-?-?-?-?-?-?-?-?-?-?-?- 24w 5d 278 lb 2 oz 128/86 Nega tive -?-?-?-?-?-?-?-?-?-?-?-?- Negative 140 -?-?-?-?-?-?-?-?-?-?-?-?- GP - no LOF, VB, DFM, ctx. Discussed timing of c/s. 04/07/21 -?--?-?-?-?-?-?-?-?-?-?-?- 28w 4d 283 lb 4 oz 138/88 Trac e -?-?-?-?-?-?-?-?-?-?-?-?- Negative 141 29 -?-?-?-?-?-?-?-?-?-?-?-?- MH-No Vb, LOF. G ood FM. Some BH CTX-PTL sx reviewed. Larc, tdap. Nl 28 wk labs. 04/21/21 -?-?-?-?-?-?-?-?-?-?-?-?- 30w 4d 290 lb 150/100 Negative -?-?-?-?-?-?-?-?-?-?-?-?- Negative 140 30 -?-?-?-?-?-?-?-?-?-?-?-?- GP - no ctx. LOF , VB, dFM. BP elevated but had stressful night. Asymptomatic. Will start home BP monitoring. GP - no ctx. LOF, VB, dFM. B P elevated but had stressful night. Asymptomatic. Will start home BP monitoring. Outpatient labs ordered. 05/05/21 -?-?-?-?-?-?-?-?-?-?-?-?- 32w 4d 297 lb 8 oz 166/104 Nega tive -?-?-?-?-?-?-?-?-?-?-?-?- Negative 130 -?-?-?-?-?-?-?-?-?-?-?-?- GP - no LOF, VB, DFM, ctx. BPs consistently elevated at home and in office. Plan BMZ today. Plan 2x/wk NSTs and labs. Started Procardia XL 30mg. 05/06/21 -?-?-?-?-?-?-?-?-?-?-?-?- 32w 5d 296 lb 4 oz 168/104 -?-?-?-?-?-?-?-?-?-?-?-?- -?-?-?-?-?-?-?-?-?-?-?-?- GP - RN visit fo r second dose of BMZ. BP severe range. Sent to triage for eval. 05/06/21 -?-?-?-?-?-?-?-?-?-?-?-?- 32w 6d 297 lb 151/92 156/89 161/94 155/86 154/88 167/89 162/87 140/75 138/75 140/76 144/86 141/89 132/78 139/88 143/79 150/89 153/86 156/87 156/87 -?-?-?-?-?-?-?-?-?-?-?-?- -?-?-?-?-?-?-?-?-?-?-?-?- GP - admitted fo r elevated BPs. 05/11/21 -?-?-?-?-?-?-?-?-?-?-?-?- 33w 3d 146/90 Negative -?--?-?-?-?-?-?-?-?-?-?-?- Negative -?-?-?-?-?-?-?-?-?-?-?-?- SM- NST only, re ivewed POC and bps, plan twice weekly labs and once weekly nst, once weekly BPP/MO and deliver at 37 or sooner. reviewed preeclampsia preacutions. 05/13/21 -?-?-?-?-?-?-?-?-?-?-?-?- 33w 5d 293 lb 147/91 Negative -?-?-?-?-?-?-?-?-?-?-?-?- Negative 140 34 -?-?-?-?-?-?-?-?-?-?-?-?- GP - no LOF, VB, dFM, ctx. BPs controlled on Procardia. Repeat labs today. BPP normal today. 05/17/21 -?-?-?-?-?-?-?-?-?-?-?-?- 34w 2d 292 lb 2 oz 165/83 2+ -?-?-?-?-?-?-?-?-?-?-?-?- Negative 140 -?-?-?-?-?-?-?-?-?-?-?-?- GP - no LOF, VB, DFM, ctx. BPs persistently severe range. Sent to triage for eval 05/17/21 -?-?-?-?-?-?-?-?-?-?-?-?- 34w 2d 275 lb 12.772 oz 163 /91 160/87 167/86 161/80 -?-?-?-?-?-?-?-?-?-?-?-?- -?-?-?-?-?-?-?-?-?-?-?-?- NST FHR Rate Baby A Baseline: 140 Variability:: Moderate Accelerations:: 15 x 15 Decelerations:: None NST Reactive:: Yes FHR Category:: Category I Uterine Activity:: none ROS Eyes Eyes: Reports systems reviewed and no addt'l complaints, except as documented ENT HEENT: Reports systems reviewed and no addt'l complaints, except as documented Cardiovascular Cardiovascular: Reports systems reviewed and no addt'l complaints, except as documented Respiratory/Chest Respiratory/Chest: Reports systems reviewed and no addt'l complaints, except as documented Gastrointestinal Gastrointestinal: Reports systems reviewed and no addt'l complaints, except as documented Genitourinary Genitourinary: Reports systems reviewed and no addt'l complaints, except as documented Musculoskeletal Musculoskeletal: Reports systems reviewed and no addt'l complaints, except as documented Integumentary Integumentary: Reports systems reviewed and no addt'l complaints, except as documented Neurologic Neurologic: Reports systems reviewed and no addt'l complaints, except as documented Psychiatric Psychiatric: Reports systems reviewed and no addt'l complaints, except as documented Endocrine Endocrinology: Reports systems reviewed and no addt'l complaints, except as documented Hematologic/Lymphatic Hematologic/Lymphatic: Reports systems reviewed and no addt'l complaints, except as documented Allergic/Immunologic Allergic/Immunologic: Reports systems reviewed and no addt'l complaints, except as documented Vital Signs Vital Signs Vital Signs: 05/17/21 18:11 05/17/21 18:13 05/17/21 18:26 Pulse Rate 105 H 110 H 111 H Blood Pressure 163/91 H 160/87 H 167/86 H BP Systolic 163 160 167 BP Diastolic 91 87 86 0913/21 18:28 Pulse Rate 109 H Blood Pressure 161/80 H BP Systolic 161 BP Diastolic 80 Weight Weight: 275 lb 12.772 oz Body Mass Index (BMI) 44.5 Physical Exam Const alert, oriented x3, no apparent distress, average body habitus, healthy appearing and well nourished HEENT normocephalic and moist oral mucous membranes Head and Scalp: atraumatic Eyes PERRL and EOMs intact bilaterally Neck full ROM Resp normal respiratory effort, no retractions and no use of accessory muscles Cardio regular rate and regular rhythm GI soft to palpation, non-tender and non-distended Extremity normal to inspection and full ROM Skin no rashes or lesions noted Neuro no focal motor deficits and no sensory deficits noted Psych mental status grossly normal, affect normal, speech normal and activity/motor behavior normal Labs Labs Labs: Blood Type O POSITIVE Antibody Screen NEGATIVE Hct 44.1 % (37-47) Hgb 15.2 g/dL (12.0-15.0) H Obstetrics US Syphilis Total Ab Non-reactive Rubella IgG Antibody Reactive (Nonreactive) Hep Bs Antigen Non-Reactive (Nonreactive) Neisseria gonorrhoeae DNA (PABLO) Negative (Negative) HIV 1&2 Antibody Non-Reactive (Nonreactive) C.trachomatis DNA (PCR) Negative (Negative) Glucose 1 Hr 50 gm 114 mg/dL (70-140) Rhogam given: No Miscellaneous Test Assessment & Plan (1) Preeclampsia: QUALIFIERS: Trimester: third trimester Qualified Code(s): O14.93 - Unspecified pre-eclampsia, third trimester COMMENT: UPC 424 on 05/06. started Procardia XL 30mg on 05/05. Increased to 60mg 05/06. Admitted 05/06-05/07. Plan repeat PreE labs on Monday. Plan 2x/wk PreE labs and NSTs. Plan 1x/wk BPP. Delivery by 37w. PLAN: BPs persistently severe range Started on hypertensive protocol with hydralazine Magnesium sulfate ordered for seizure prophylaxis Plan for repeat with tubal ligation this evening (2) : QUALIFIERS: Weeks of gestation: 34 weeks Qualified Code(s): Z3A.34 - 34 weeks gestation of COMMENT: genetic- low risk; DOES NOT WANT TO KNOW GENDER, declines carrier, anatomy nl (3) Post traumatic stress disorder (PTSD): COMMENT: from post hemorrhage- was on Cymbalta not currently (4) Sterilization: COMMENT: desires tubal at time of C/S (5) Obesity affecting : QUALIFIERS: Trimester: second trimester Qualified Code(s): O99.212 - Obesity complicating , second trimester COMMENT: BMI 45 - GCT passed at NOB (6) Supervision of high risk , antepartum: COMMENT: PRR ANGÉLICA 06/26/21 PC: Zack Campos Spouse: Pavan (7) hemorrhage: QUALIFIERS: hemorrhage type: unspecified Qualified Code(s): O72.1 - Other immediate hemorrhage COMMENT: 3L after second (not intra-op). Required banjo and bakri balloon. declined blood transfusion- would be willing to get transfusion this time (8) Gestational hypertension: QUALIFIERS: Trimester: first trimester Qualified Code(s): O13.1 - Gestational [-induced] hypertension without significant proteinuria, first trimester COMMENT: BPs persistently elevated. As high as 160s at home but never persistently severe range. Started procardia XL 30mg daily 05/05. 2x/wk NSTs and labs. BMZ given 05/05. Repeat 05/06. Delivery at 37w. (9) H/O section: COMMENT: x2. Both for severe no cervical dilation with need for delivery (PreE/HELLP). Planning RCD unless active labor. (10) H/O HELLP syndrome, currently : COMMENT: elevated liver enzymes, PLT ok at time of 2018 C/S. Discussed ASA to decrease risk. Previously caused GI upsety. Will try enteric coated ASA. (11) AMA (advanced maternal age) multigravida 35+: QUALIFIERS: Trimester: first trimester Qualified Code(s): O09.521 - Supervision of elderly multigravida, first trimester COMMENT: Desires NIPT
[2021-05-17 18:40] LABS: Protein, Urine (Random) 91.7 mg/dL (<11.9); Protein:Creat Ratio 752 mg/g CRE (0-200)
[2021-05-17] MEDS: Lactated Ringers 1,000 ML 999 ML IV (18:50)
[2021-05-17] MEDS: hydrALAZINE 20 MG/ML Vial 10 MG IV ×2 (18:50→19:18)
[2021-05-17] MEDS: Magnesium Sulfate 4gm/100mL 4 GM/100 ML IV.SOLN. IV (18:51)
[2021-05-17 18:54] LABS: Hematocrit 40.1 % (37-47); Hemoglobin 13.8 g/dL (12.0-15.0); Mean Corp Hgb Conc 34.4 g/dL (32-36); Mean Corpuscular Hgb 30.7 pg (27.0-32.0); Mean Corpuscular Volume 89.3 fL (81-99); Mean Platelet Vol. 10.8 fl (6.2-12.0); Platelet Count 320 K/mm3 (150-450); RBC Distribution Width CV 13.2 % (11.6-14.6); RBC Distribution Width SD 43.1 fl (35.1-43.9); Red Blood Count 4.49 M/mm3 (4.2-5.4); White Blood Count 7.7 K/mm3 (4.4-11.0)
[2021-05-17] MEDS: 0.9% Saline Lock 10 ML Syringe IV (18:58)
[2021-05-17 18:59] LABS: International Normalized Ratio 0.9
[2021-05-17 19:00] LABS: Partial Thromboplast Time 31.5 Seconds (24.1-36.2)
[2021-05-17] MEDS: Magnesium Sulfate 4gm/100mL 2 GM/50 ML IV.SOLN. IV (19:11)
[2021-05-17 19:13] LABS: Fibrinogen 435 mg/dl (203-444)
[2021-05-17] MEDS: Magnesium Sulfate 20 GM/500 ML BAG IV (19:24)
[2021-05-17 19:31] LABS: AST(SGOT) 38 U/L (15-37); Alanine Aminotransfer ALT/SGPT 29 U/L (13-56); Creatinine, Serum 0.57 mg/dL (0.55-1.02); EST Glomerular Filtration Rate 127 mL/min (>60); Est Glom Filt Rate - Afr Amer 154 mL/min (>60); Estimated Creatinine Clearance 125.28 ml/min; LDH 160 U/L (84-246); Uric Acid 5.2 mg/dL (2.6-6.0)
[2021-05-17] MEDS: Labetalol (Compound) 20 MG/4 ML SYRINGE IV (20:00)
[2021-05-17] MEDS: Sodium Citrate/Citric Acid 30 ML UDC PO (20:12)
[2021-05-17] MEDS: Labetalol (Prefilled) 20 MG/4 ML 40 MG IV (20:16)
--- NOTE | 2021-05-17 20:55 | FALS_PTH ---
PATIENT: ELIJAH DEWEY LOC: [facility] U#:[id number] AGE/SX: 36/F ROOM: WP001 RE05/17/[address]: Dr. Rebecca Bowles MD : 1985 BED: 1 DIS: 05/20/2021 SPEC #: [id number] RECD: 05/18/21 12:17 STATUS: LEXI MICHAEL #: [id number] SIRIA: 05/17/21 20:[address]: Rebecca Bowles DEPT: SURGICAL PATHOLOGY RECD BY: Emmie Powell ENTERED: 05/18/21 13:10 SP TYPE: FALL TUBES OTHR DR: Dr. Kye Bowman, DO Tissues: Fallopian tube Procedures: Surgery Specimen Level II HEADER OPERATION: Tubal ligation PRE-OP DIAGNOSIS: Sterilization TISSUE SUBMITTED: A ? Right fallopian tube, B ? Left fallopian tube MICROSCOPIC DIAGNOSIS A. Right fallopian tube, salpingectomy: Fallopian tube, no pathologic diagnosis. B. Left fallopian tube, salpingectomy: Fallopian tube, no pathologic diagnosis. JACKIE:micki 05/19/2021 MICROSCOPIC DESCRIPTION Slides are reviewed. GROSS DESCRIPTION A - Received in fixative is one container labeled with the patient's name and designated right fallopian tube. The specimen consists of a fallopian tube including fimbrial end measuring 7 cm in length and 0.8 cm in diameter. Sections reveal unremarkable cut surfaces. [employer] Estate [employer] sections are submitted in one cassette. B - Received in fixative is one container labeled with the patient's name and designated left fallopian tube. The specimen consists of a fallopian tube including fimbrial end measuring 8 cm in length and 0.9 cm in diameter. Sections reveal unremarkable cut surfaces. Real Estate Leasing Agent sections are submitted in one cassette. / JACKIE:micki 05/18/21 TC:4 CPT: 56741 x2
[2021-05-17 21:09] LABS: Absolute Lymphocyte Count 1.35 X10^3/uL (0.83-4.51); Absolute Neutrophil Count 5.4 X10^3/uL (2.0-7.7); Eosinophil# 0.19 X10^3/uL; Eosinophils% 2.4 % (0-5); Lymphocyte # 1.35 X10^3/ul (0.83-4.51); Lymphocyte % 17.4 % (19-41); Monocyte# 0.77 X10^3/uL; Monocyte% 9.9 % (0-10); NRBC Flagged by Analyzer 0 % (0-5); Neutrophil # 5.43 X10^3/uL (2.7-7.7); Neutrophil % 69.9 % (47-70)
[2021-05-17] MEDS: miSOPROStol 200 MCG Tablet 1000 MCG RC (21:37)
--- NOTE | 2021-05-17 21:59 | OP.PCM_ITS ---
Assessment & Plan (1) delivery delivered: COMMENT: GP RLTCS&BS 05/17 @34w for PreEwSF (2) Preeclampsia: QUALIFIERS: Trimester: third trimester Qualified Code(s): O14.93 - Unspecified pre-eclampsia, third trimester COMMENT: UPC 424 on 05/06. started Procardia XL 30mg on 05/05. Increased to 60mg 05/06. Admitted 05/06-05/07. Plan repeat PreE labs on Monday. Plan 2x/wk PreE labs and NSTs. Plan 1x/wk BPP. Delivery by 37w. (3) : QUALIFIERS: Weeks of gestation: 34 weeks Qualified Code(s): Z3A.34 - 34 weeks gestation of COMMENT: genetic- low risk; DOES NOT WANT TO KNOW GENDER, declines carrier, anatomy nl (4) Post traumatic stress disorder (PTSD): COMMENT: from post hemorrhage- was on Cymbalta not currently (5) Sterilization: COMMENT: desires tubal at time of C/S (6) Obesity affecting : QUALIFIERS: Trimester: second trimester Qualified Code(s): O99.212 - Obesity complicating , second trimester COMMENT: BMI 45 - GCT passed at NOB (7) Supervision of high risk , antepartum: COMMENT: PRR ANGÉLICA 06/26/21 PC: Zack Campos Spouse: Pavan (8) AMA (advanced maternal age) multigravida 35+: QUALIFIERS: Trimester: first trimester Qualified Code(s): O09.521 - Supervision of elderly multigravida, first trimester COMMENT: Desires NIPT (9) H/O HELLP syndrome, currently : COMMENT: elevated liver enzymes, PLT ok at time of 2018 C/S. Discussed ASA to decrease risk. Previously caused GI upsety. Will try enteric coated ASA. (10) hemorrhage: QUALIFIERS: hemorrhage type: unspecified Qualified Code(s): O72.1 - Other immediate hemorrhage COMMENT: 3L after second (not intra-op). Required banjo and bakri balloon. declined blood transfusion- would be willing to get transfusion this time (11) Gestational hypertension: QUALIFIERS: Trimester: first trimester Qualified Code(s): O13.1 - Gestational [-induced] hypertension without significant proteinuria, first trimester COMMENT: BPs persistently elevated. As high as 160s at home but never persistently severe range. Started procardia XL 30mg daily 05/05. 2x/wk NSTs and labs. BMZ given 05/05. Repeat 05/06. Delivery at 37w. (12) H/O section: COMMENT: x2. Both for severe no cervical dilation with need for delivery (PreE/HELLP). Planning RCD unless active labor. Maternal Data Information ANGÉLICA Calculator Estimated Delivery Date Method Current WG Current Estimate 06/26/21 LMP (Certain) 34w 2d Other Estimates 06/23/21 Ultrasound #1 34w 5d Details Operative Information Date of Procedure: 05/17/21 Pre-Operative Diagnosis: IUP at 34 weeks, preeclampsia with severe features, history of x2, desire for permanent sterilization Post-Operative Diagnosis: Same Indications for : Repeat Elective and Desires elective sterilization Indications Narrative: 36-year-old at 34 weeks gestation who was admitted for preeclampsia with severe features after requiring hydralazine 10 mg x 2 and labetalol 20 mg and 40 mg. 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 Spinal anesthesia was placed without difficulty. Rice catheter was placed. The patient was placed in the dorsal supine position with leftward tilt. Patient was prepped and draped in the normal sterile fashion. Pfannenstiel skin incision was made with the scalpel and carried through to the underlying layer of fascia with the scalpel. Fascia was nicked in the midline and the incision extended laterally. The rectus bellies were dissected off superiorly and inferiorly with out complication both sharply and bluntly. The peritoneum was entered digitally. The incision was stretched and a low trans verse uterine incision was made with the scalpel. The 's head was delivered atraumatically followed by the anterior and posterior shoulders without complication the rest of the delivered. The cord was clamped and cut and the infant was handed off to awaiting nurse. The placenta was delivered spontaneously immediately following and was noted to be intact and have a three- vessel cord. The uterus was exteriorized cleared of all clots and debris, and the incision was closed in a double layer closure using #1 Monocryl. The ovaries and fallopian tubes were noted to be within normal limits. The fallopian tubes were identified and grasped with Alissa clamps bilaterally. The LigaSure device was utilized to cauterize and transect the mesosalpinx to the level of the cornua and the tube was amputated. Excellent hemostasis was noted. The uterus was returned to the maternal abdomen and gutters were cleared of all clots and debris. Gloves were changed prior to fascial closure. Fascia was closed with 0 PDS in a running fashion. Subcutaneous tissue was copiously irrigated and the skin was closed with 3-0 Monocryl in a subcuticular fashion. Mepilex dressing was applied without complication. Patient was taken to recovery in stable condition. Presentation: Positive for Vertex and TRUONG Amniotic Membrane Rupture Type: Artificial Amniotic Fluid Description: Clear Placental Delivery Description: Expressed Placenta Disposition: [facility] Cord Vessel Description: 3 Vessels Cord Entanglement: Around neck x 2, loose Nuchal Cord Compression: Without compression A Gender: Male (1 minute): 8 (5 minute): 10 Delayed Cord Clamping: Yes Complications Risks of Surgery Discussed w/Patient: Bleeding, Anesthesia Risks, Infection, Permanency, Failure Rate of 1 to 2% and Injury to surrounding structure(s) including bowel and bladder Complications: None apparent Procedures Urinary/Genital [id number]: [id number] C/S+TL
[2021-05-17] MEDS: Oxytocin 30 units/NS 500 ml 30 UNITS/500 ML IV.SOLN 167 UNITS IV (22:00)
--- NOTE | 2021-05-17 22:06 | PCM.DC ---
Discharge Instructions Diet Discharge Diet: No restrictions Activity May resume sexual activity in: 4-6 weeks Lifting Restrictions: 20 lbs Additional Activity Instructions:: Nothing in the vagina for 4-6 weeks. You may return to work/school in 6 weeks. Dressing / Incision Call your doctor if your incision/area has: Continuous Slow Oozing, Sudden Increased Bleeding, Increased Pain/ Swelling, Increased Redness and Foul Smelling Discharge Call your doctor if you observe: Fever of 101 or Higher Suture Line Care: Avoid Pulling/Pushing and Avoid Pinching/Bending Follow Up Care When: Call to make an appointment with your doctor for an incision check in 1-2 weeks. You will also need a 6 week post- follow up appointment. Test Results: Test results from this visit will be discussed in further detail at your follow-up appointment, if applicable. Discharge Plan Admission Admit Date/Time: 05/17/21 18:40 Attending Provider: Rebecca Bowles Primary Care Provider: Kye Bowman Instructions Patient Instructions: After a Discharge Orders/Prescriptions Prescriptions: New ibuprofen 800 mg tablet 800 mg PO Q8H PRN (Reason: pain) Qty: 30 RF: 1 oxycodone 5 mg capsule 5 mg PO Q6H PRN (Reason: pain) 7 Days Qty: 15 RF: 0 Continued omeprazole magnesium [Prilosec OTC] 20 mg tablet,delayed release (DR/EC) 20 mg PO DAILY RF: 0 metformin 1,000 mg tablet 1,000 mg PO DAILY RF: 0 vit no.[id number] 1 EACH tablet 1 each PO DAILY RF: 0 nifedipine [Procardia XL] 60 mg tablet extended release 24hr 60 mg PO DAILY Qty: 60 RF: 6 Referrals / Follow Up: Kye Bowman DO [Primary Care Provider] -
[2021-05-17] MEDS: Labetalol (Prefilled) 20 MG/4 ML IV (22:40)
[2021-05-17] MEDS: Ketorolac 30 MG/ML Syringe IV (22:57)
[2021-05-17] MEDS: Acetaminophen 500 MG Tablet 1000 MG PO (22:58)
[2021-05-17] MEDS: NIFEdipine 30 MG Tablet PO (23:51)
[2021-05-18] VITALS (216 sets, daily range): BP systolic 126–184; BP diastolic 69–108; PULSE 33–245; RESP 14–18; TEMP 36.2–36.7; O2SAT 81–100
[2021-05-18] MEDS: Lactated Ringers 1,000 ML 100 ML IV ×2 (01:00→11:25)
[2021-05-18] MEDS: Ondansetron 4 MG/2 ML Vial IV (01:37)
[2021-05-18] MEDS: 0.9% Saline Lock 10 ML Syringe IV ×3 (01:39→20:58)
--- NOTE | 2021-05-18 02:54 | NURSING ---
Ligature device used during surgery Lot #[id number], exp 03/03/2026
[2021-05-18] MEDS: Ketorolac 30 MG/ML Syringe IV ×3 (05:14→16:32)
[2021-05-18] MEDS: Acetaminophen 500 MG Tablet 1000 MG PO ×4 (05:14→22:32)
[2021-05-18] MEDS: proCHLORPERazine 10 MG/2 ML Vial IV (05:17)
[2021-05-18] MEDS: Magnesium Sulfate 20 GM/500 ML BAG IV ×2 (06:30→16:35)
--- NOTE | 2021-05-18 08:25 | PN.OBGYN_ITS ---
Subjective Subjective Patient doing well without complaints. Tolerating PO. Ambulating and voiding without difficulty. Breast feeding well. Denies chest pain, shortness of breath, calf pain/swelling, fevers, chills, lightheadedness. Objective Data Objective Data Vital Signs: Vital Signs Temp Pulse Resp BP Pulse Ox 97.1 F L 88 18 147/84 H 99 05/18/21 07:30 05/18/21 08:19 05/18/21 07:30 05/18/21 07:35 05/18/21 08:19 Oxygen Delivery Method Room Air Weight: 275 lb 12.772 oz Body Mass Index (BMI) 44.5 Intake & Output: Intake and Output for Last 24 Hours 05/16/21 05/17/21 05/18/21 23:59 23:59 23:59 Intake Total 1475 / 1475 1400 / 1400 Output Total 120 / 120 369 / 369 Balance 1355 / 1355 1031 / 1031 Lab / Micro Data Result Diagrams: 05/17/21 18:10 05/17/21 18:10 Labs: Laboratory Results - last 24 hr 05/17/21 18:05: U Random Total Protein 91.7 H, Urine Creatinine 122.00, Protein/Creatinin Ratio 752 H 05/17/21 18:10: WBC 7.7, RBC 4.49, Hgb 13.8, Hct 40.1, MCV 89.3, MCH 30.7, MCHC 34.4, RDW Std Deviation 43.1, RDW Coeff of Bhavin 13.2, Plt Count 320, MPV 10.8, Immature Gran % (Auto) 0.400, Neut % (Auto) 69.9, Lymph % (Auto) 17.4 L, [place] % (Auto) 9.9, Eos % (Auto) 2.4, Baso % (Auto) 0.0, Absolute Neuts (auto) 5.4, Absolute Lymphs (auto) 1.35, Nucleated RBC % 0 05/17/21 18:10: Creatinine 0.57, Estim Creat Clear Calc 125.28, Est GFR (MDRD) Af Amer 154, Est GFR (MDRD) Non-Af 127, Uric Acid 5.2, AST 38 H, ALT 29, Lactate Dehydrogenase 160 05/17/21 18:10: PT 12.0, INR 0.9, APTT 31.5 05/17/21 18:10: Fibrinogen 435 05/17/21 18:10: Blood Type O POSITIVE, Antibody Screen NEGATIVE ROS Constitutional Constitutional: Denies fever(s) Cardiovascular Cardiovascular: Denies chest pain, dyspnea or lightheadedness Gastrointestinal Gastrointestinal: Reports abdominal pain; Denies constipation or diarrhea Neurologic Neurologic: Denies dizziness or headache(s) Physical Exam Const alert, oriented x3, no apparent distress, average body habitus, healthy appearing and well nourished HEENT normocephalic Head and Scalp: atraumatic Eyes PERRL and EOMs intact bilaterally Neck full ROM Lymph Lymphatic: no lymphadenopathy noted Resp normal respiratory effort, no retractions and no use of accessory muscles Cardio regular rate GI soft to palpation, non-tender and non-distended Inspection: incision intact and other (dressing in place) Palpation: other Other Details: fundus firm Extremity normal to inspection and no clubbing, cyanosis or edema Skin no rashes or lesions noted Neuro no focal motor deficits and no sensory deficits noted Psych mental status grossly normal, affect normal and speech normal Assessment & Plan (1) delivery delivered: COMMENT: GP RLTCS&BS 05/17 @34w for PreEwSF PLAN: s/p LTCS PPD # 1 1. routine post care 2. breast feeding- support given 3. rh positive 4. rubella immune (2) Preeclampsia: QUALIFIERS: Trimester: third trimester Qualified Code(s): O14.93 - Unspecified pre-eclampsia, third trimester COMMENT: UPC 424 on 05/06. started Procardia XL 30mg on 05/05. Increased to 60mg 05/06. Admitted 05/06-05/07. Plan repeat PreE labs on Monday. Plan 2x/wk PreE labs and NSTs. Plan 1x/wk BPP. Delivery by 37w. PLAN: on magnesium sulfate until 24h PP BPs mild range to normal on Procardia XL 60mg in am and 30mg in PM Asymptomatic
[2021-05-18] MEDS: Enoxaparin 40 MG/0.4 ML Syringe SC ×2 (09:46→22:33)
[2021-05-18] MEDS: Senna/Docusate Sodium 1 Tablet PO (09:47)
[2021-05-18] MEDS: NIFEdipine 60 MG Tablet PO (09:47)
[2021-05-18] MEDS: Pantoprazole Sodium 20 MG Tablet PO (09:47)
[2021-05-18] MEDS: metFORMIN (XR) 500 MG Tablet 1000 MG PO (11:34)
[2021-05-18 12:24] LABS: Pathology Specimen OB SEE PATHOLOGY REPORT
[2021-05-18] MEDS: Labetalol (Prefilled) 20 MG/4 ML IV (13:30)
[2021-05-18] MEDS: NIFEdipine 30 MG Tablet PO (14:21)
[2021-05-18 14:39] LABS: Hematocrit 39.3 % (37-47); Hemoglobin 13.3 g/dL (12.0-15.0); Mean Corp Hgb Conc 33.8 g/dL (32-36); Mean Corpuscular Volume 91.6 fL (81-99); Mean Platelet Vol. 10.1 fl (6.2-12.0); Platelet Count 274 K/mm3 (150-450); RBC Distribution Width CV 13.5 % (11.6-14.6); RBC Distribution Width SD 45.3 fl (35.1-43.9); Red Blood Count 4.29 M/mm3 (4.2-5.4); White Blood Count 8.2 K/mm3 (4.4-11.0)
[2021-05-18] MEDS: Ibuprofen 600 MG Tablet PO (22:33)
[2021-05-19] VITALS (11 sets, daily range): BP systolic 136–175; BP diastolic 75–90; PULSE 80–101; RESP 14–18; TEMP 36.4–37.3; O2SAT 83–97
[2021-05-19] MEDS: Ibuprofen 600 MG Tablet PO ×4 (04:38→22:05)
[2021-05-19] MEDS: Acetaminophen 500 MG Tablet 1000 MG PO ×4 (04:38→22:04)
[2021-05-19] MEDS: oxyCODONE 5 MG Tablet PO ×2 (05:37→11:21)
[2021-05-19] MEDS: metFORMIN (XR) 500 MG Tablet 1000 MG PO (08:00)
--- NOTE | 2021-05-19 08:29 | PCM.PN.OB ---
Subjective Subjective Patient doing well without complaints. Tolerating PO. Ambulating and voiding without difficulty. Breast feeding well. Denies chest pain, shortness of breath, calf pain/swelling, fevers, chills, lightheadedness. Objective Data Objective Data Vital Signs: Vital Signs Temp Pulse Resp BP Pulse Ox 97.5 F L 90 16 136/82 H 83 05/19/21 07:54 05/19/21 07:55 05/19/21 07:54 05/19/21 07:55 05/19/21 07:55 Oxygen Delivery Method Room Air Weight: 275 lb 12.772 oz Body Mass Index (BMI) 44.5 Intake & Output: Intake and Output for Last 24 Hours 05/17/21 05/18/21 05/19/21 23:59 23:59 23:59 Intake Total 1475 / 1475 5226.67 / 5226.67 Output Total 120 / 120 2219 / 2219 Balance 1355 / 1355 3007.67 / 3007.67 Lab / Micro Data Result Diagrams: 05/18/21 14:32 05/17/21 18:10 Labs: Laboratory Results - last 24 hr 05/18/21 14:32: WBC 8.2, RBC 4.29, Hgb 13.3, Hct 39.3, MCV 91.6, MCH 31.0, MCHC 33.8, RDW Std Deviation 45.3 H, RDW Coeff of Bhavin 13.5, Plt Count 274, MPV 10.1 ROS Constitutional Constitutional: Denies fever(s) Cardiovascular Cardiovascular: Denies chest pain, dyspnea or lightheadedness Gastrointestinal Gastrointestinal: Reports abdominal pain; Denies constipation or diarrhea Neurologic Neurologic: Denies dizziness or headache(s) Physical Exam Const alert, oriented x3, no apparent distress, average body habitus, healthy appearing and well nourished HEENT normocephalic Head and Scalp: atraumatic Eyes PERRL and EOMs intact bilaterally Neck full ROM Lymph Lymphatic: no lymphadenopathy noted Resp normal respiratory effort, no retractions and no use of accessory muscles Cardio regular rate GI soft to palpation, non-tender and non-distended Inspection: incision intact and other (dressing in place) Palpation: other Other Details: fundus firm Extremity normal to inspection and no clubbing, cyanosis or edema Skin no rashes or lesions noted Neuro no focal motor deficits and no sensory deficits noted Psych mental status grossly normal, affect normal and speech normal Assessment & Plan (1) delivery delivered: COMMENT: GP RLTCS&BS 05/17 @34w for PreEwSF PLAN: s/p LTCS PPD # 2 1. routine post care 2. breast feeding- support given 3. rh positive 4. rubella immune (2) Preeclampsia: QUALIFIERS: Trimester: third trimester Qualified Code(s): O14.93 - Unspecified pre-eclampsia, third trimester COMMENT: UPC 424 on 05/06. started Procardia XL 30mg on 05/05. Increased to 60mg 05/06. Admitted 05/06-05/07. Plan repeat PreE labs on Monday. Plan 2x/wk PreE labs and NSTs. Plan 1x/wk BPP. Delivery by 37w. PLAN: s/p magnesium sulfate x24h BPs mild range to normal on Procardia XL 60mg BID asymptomatic
--- NOTE | 2021-05-19 10:43 | CASEMGMT ---
Brief Social Work Assessment Labor and Delivery Unit Date/Time of referral: 05/17/21, 9:41pm Referred by: Dr. Burt Durand Date/Time of Intervention: 05/19/21, 10:15am Reason for Referral: special care nursery admission, history of PTSD after previous delivery with extensive blood loss History obtained from: [facility] Medical History: MOB: preeclampsia, chronic hypertension, GERD, h/o hemorrhage, PCOS. Baby: born 05/17/21, 8:55pm, via . Prematurity, born at 34 weeks and 2 days. Baby's Apgars are 8 and 10 at 1 and 5 minutes, birthweight 2280 g. Family Composition: Family is MOB, FOB, children aged 3 and 7, and now baby. Support: MOB reports good support system. Younger children are currently with FOB's parents. Supplies: MOB reports to have all needed supplies for baby. Mental Health: MOB has history of PTSD from prior . MOB does acknowledge this history but does not elaborate on it. MOB does report to be managing well. MOB does talk about baby being in SCN, and that she came in for a checkup and ended up delivering. With this however, states she is doing fine. SW did give MOB information on depression and anxiety, and reviewed it briefly. 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 SW gave MOB a list of local counseling agencies as well should it be needed. SW pointed out the number to [facility] and explained that they do have a 24 hour hotline. MOB states understanding. Assessment: MOB appropriate in conversation w/SW, reports to be managing fine at this time. MOB open and accepting of resources and information given. Plan: Plan will be for baby to go home w/MOB and FOB at discharge. No further social service needs anticipated at this time. JOHN PAUL Castellanos
[2021-05-19] MEDS: Pantoprazole Sodium 20 MG Tablet PO (11:18)
[2021-05-19] MEDS: NIFEdipine 60 MG Tablet PO ×2 (11:20→22:05)
[2021-05-19] MEDS: Enoxaparin 40 MG/0.4 ML Syringe SC ×2 (11:21→22:05)
[2021-05-19] MEDS: Labetalol 200 MG Tablet PO ×2 (18:30→22:05)
[2021-05-19] MEDS: 0.9% Saline Lock 10 ML Syringe IV ×2 (18:30→22:06)
[2021-05-20] MEDS: oxyCODONE 5 MG Tablet PO (00:09)
[2021-05-20 00:14] VITALS: BP 125/81; PULSE 90; RESP 14; TEMP 36.7; O2SAT 94
[2021-05-20] MEDS: Ibuprofen 600 MG Tablet PO (05:11)
[2021-05-20] MEDS: Acetaminophen 500 MG Tablet 1000 MG PO (05:12)
[2021-05-20] MEDS: Labetalol 200 MG Tablet PO (05:12)
[2021-05-20 05:20] VITALS: BP 127/82; PULSE 89; RESP 16; TEMP 36.7; O2SAT 97
[2021-05-20] MEDS: metFORMIN (XR) 500 MG Tablet 1000 MG PO (08:29)
[2021-05-20 08:47] VITALS: BP 131/83; PULSE 87; RESP 16; TEMP 36.8; O2SAT 98
--- NOTE | 2021-05-20 08:47 | PCM.PN.OB ---
Subjective Subjective Patient doing well without complaints. Tolerating PO. Ambulating and voiding without difficulty. Breast feeding well. Denies chest pain, shortness of breath, calf pain/swelling, fevers, chills, lightheadedness. Objective Data Objective Data Vital Signs: Vital Signs Temp Pulse Resp BP Pulse Ox 98.1 F 89 16 127/82 H 97 05/20/21 05:20 05/20/21 05:20 05/20/21 05:20 05/20/21 05:20 05/20/21 05:20 Oxygen Delivery Method Room Air Weight: 275 lb 12.772 oz Body Mass Index (BMI) 44.5 Intake & Output: Intake and Output for Last 24 Hours 05/18/21 05/19/21 05/20/21 23:59 23:59 23:59 Intake Total 5226.67 / 5226.67 300 / 300 Output Total 2219 / 2219 Balance 3007.67 / 3007.67 300 / 300 Lab / Micro Data Result Diagrams: 05/18/21 14:32 05/17/21 18:10 ROS Constitutional Constitutional: Denies fever(s) Cardiovascular Cardiovascular: Denies chest pain, dyspnea or lightheadedness Gastrointestinal Gastrointestinal: Reports abdominal pain; Denies constipation or diarrhea Neurologic Neurologic: Denies dizziness or headache(s) Physical Exam Const alert, oriented x3, no apparent distress, average body habitus, healthy appearing and well nourished HEENT normocephalic Head and Scalp: atraumatic Eyes PERRL and EOMs intact bilaterally Neck full ROM Lymph Lymphatic: no lymphadenopathy noted Resp normal respiratory effort, no retractions and no use of accessory muscles Cardio regular rate GI soft to palpation, non-tender and non-distended Inspection: incision intact and other (dressing in place) Palpation: other Other Details: fundus firm Extremity normal to inspection and no clubbing, cyanosis or edema Skin no rashes or lesions noted Neuro no focal motor deficits and no sensory deficits noted Psych mental status grossly normal, affect normal and speech normal Assessment & Plan (1) delivery delivered: COMMENT: GP RLTCS&BS 05/17 @34w for PreEwSF PLAN: s/p LTCS PPD # 2 1. routine post care 2. breast feeding- support given 3. rh positive 4. rubella immune (2) Preeclampsia: QUALIFIERS: Trimester: third trimester Qualified Code(s): O14.93 - Unspecified pre-eclampsia, third trimester COMMENT: Discharged on Procardia XL 60mg BID and labetalol 200mg TID PLAN: s/p mag sulfate for seizure ppx On Procardia XL 60mg BID and labetalol 200mg TID - BPs controlled Asymptomatic
[2021-05-20] MEDS: Enoxaparin 40 MG/0.4 ML Syringe SC (09:52)
[2021-05-20] MEDS: NIFEdipine 60 MG Tablet PO (09:53)
[2021-05-20] MEDS: Pantoprazole Sodium 20 MG Tablet PO (09:53)
--- NOTE | 2021-05-21 13:57 | DS.PCM_ITS ---
Providers Date of Admission: 05/17/21 Primary Care Physician: Dr. Kye Bowman, DO Reason For Visit: Diagnosis Discharge Diagnosis (1) delivery delivered: Status: Acute Code(s): O82 - Encounter for delivery without indication (2) Preeclampsia: Status: Acute Code(s): O14.90 - Unspecified pre-eclampsia, unspecified trimester Qualifiers: Trimester: third trimester Qualified Code(s): O14.93 - Unspecified pre- eclampsia, third trimester Medications at Discharge Home Medications vit no.[id number] 1 each PO DAILY 04/17/18 metformin 1,000 mg tablet 1,000 mg PO DAILY 04/23/20 omeprazole magnesium 20 mg tablet,delayed release 20 mg PO DAILY 04/23/20 ibuprofen 800 mg PO Q8H PRN #30 tab 05/17/21 oxycodone 5 mg PO Q6H PRN 7 Days #15 cap 05/17/21 labetalol 200 mg PO TID #90 tab 05/20/21 nifedipine 60 mg PO BID #60 tab 05/20/21 Hospital Course Operations section (with bilateral salpingectomy) Procedures None Summary of Care Provided Hospital Course: 36-year-old G4, P2 at 34 weeks gestation admitted for preeclampsia with severe features. She was delivered via with bilateral salpingectomy. She was given magnesium sulfate for seizure prophylaxis for 24 hours. Her antihypertensives were adjusted to Procardia XL 60 mg twice a day and labetalol 200 mg 3 times a day blood pressures were noted to be well controlled. She remained asymptomatic throughout her course. Her postop course was uncomplicated. She was discharged home in stable condition on postop day 3. Weight / BMI Weight Weight: 275 lb 12.772 oz Body Mass Index (BMI) 44.5 ABG / Lab / Microbiology Data Result Diagrams: 05/18/21 14:32 05/17/21 18:10 D/C Instructions Discharge Diet: No restrictions May resume sexual activity in: 4-6 weeks Additional Activity Instructions: Nothing in the vagina for 4-6 weeks. You may return to work/school in 6 weeks. Call your doctor if your incision/area has: Continuous Slow Oozing, Sudden Increased Bleeding, Increased Pain/ Swelling, Increased Redness and Foul Smelling Discharge Call your doctor if you observe: Fever of 101 or Higher Suture Line Care: Avoid Pulling/Pushing and Avoid Pinching/Bending When: Call to make an appointment with your doctor for an incision check in 1-2 weeks. You will also need a 6 week post- follow up appointment. Meaningful Use Info Meaningful Use Diagnoses (Choose all that apply): None applicable Discharge Plan Admission Admit Date/Time: 05/17/21 18:40 Attending Provider: Rebecca Bowles Primary Care Provider: Kye Bowman Instructions Patient Instructions: After a Discharge Orders/Prescriptions Prescriptions: New ibuprofen 800 mg tablet 800 mg PO Q8H PRN (Reason: pain) Qty: 30 RF: 1 oxycodone 5 mg capsule 5 mg PO Q6H PRN (Reason: pain) 7 Days Qty: 15 RF: 0 labetalol 200 mg Tablet 200 mg PO TID Qty: 90 RF: 2 nifedipine 60 mg Tablet Extended Release 24hr 60 mg PO BID Qty: 60 RF: 2 Continued omeprazole magnesium [Prilosec OTC] 20 mg tablet,delayed release (DR/EC) 20 mg PO DAILY RF: 0 metformin 1,000 mg tablet 1,000 mg PO DAILY RF: 0 vit no.[id number] 1 EACH tablet 1 each PO DAILY RF: 0 Discontinued nifedipine [Procardia XL] 60 mg tablet extended release 24hr 60 mg PO DAILY Qty: 60 RF: 6 Referrals / Follow Up: Kye Bowman DO [Primary Care Provider] - Disposition Disposition (needs filled in before D/C Order can be placed): Home, Self Care
== END 2021-05-20 10:15 | disposition home or self-care (01) | DRG 785 ==
LOC: WP 18:54 → WPOUT 05-18 15:55
PROVIDERS: Admitting Provider Obstetrics & Gynecology; PCP Student in an Organized Health Care Education/Training Program; Referring Provider Obstetrics & Gynecology; Visit Provider Obstetrics & Gynecology
DX: O14.14 Severe pre-eclampsia complicating childbirth (principal); Z30.2 Encounter for sterilization; O34.211 Maternal care for low transverse scar from previous cesarean delivery; O69.81X0 Labor and delivery complicated by cord around neck, without compression, not applicable or unspecified; O99.214 Obesity complicating childbirth; E66.9 Obesity, unspecified; Z79.84 Long term (current) use of oral hypoglycemic drugs; Z79.899 Other long term (current) drug therapy; Z3A.34 34 weeks gestation of pregnancy; Z37.0 Single live birth
CPT/HCPCS: 59025; 59050; 82565; 82570; 83615; 84156; 84450; 84460; 84550; 85025; 85027; 85384; 85610; 85730; 86850; 86900; 86901; 88302; 99218; J7120; A4216; G0378; J2405

== ENCOUNTER → 2021-05-17 | Outpatient (CLI) | payer OTHER, SELFPAY ==
[2021-05-17 14:00] LABS: 24 Hour Urine Protein 368.9 mg/24HR (<150 MG/24HR); 24HR. UA Prot. Total Volume 2975 mL; Urine Protein (24 Hour) 12.4 mg/dL (<11.9)
[2021-05-17 16:13] LABS: Creatinine, Serum 0.66 mg/dL (0.55-1.02); EST Glomerular Filtration Rate 106 mL/min (>60); Est Glom Filt Rate - Afr Amer 129 mL/min (>60)
[2021-05-17 16:15] LABS: Creat.Clear Total Volume 2975 mL; Creatinine Clearance 73 ml/min (100-200); Creatinine Serum Creat 0.7 mg/dL (0.6-1.0); EST Glomerular Filtration Rate 100 mL/min (>60); Est Glom Filt Rate - Afr Amer 100 mL/min (>60)
== END | disposition home or self-care (01) ==
LOC: LABSPEC 13:06
PROVIDERS: PCP Student in an Organized Health Care Education/Training Program; Referring Provider Obstetrics & Gynecology; Visit Provider Obstetrics & Gynecology
DX: O14.93 Unspecified pre-eclampsia, third trimester (principal); Z3A.00 Weeks of gestation of pregnancy not specified
CPT/HCPCS: 36415; 81050; 82565; 82575; 84156

== ENCOUNTER → 2021-06-30 | Outpatient (CLI) | payer OTHER, SELFPAY | END | disposition home or self-care (01) | LOC: LABSPEC 15:31 | PROVIDERS: PCP Student in an Organized Health Care Education/Training Program; Visit Provider Obstetrics & Gynecology | DX: Z12.4 Encounter for screening for malignant neoplasm of cervix (principal) | CPT/HCPCS: 87624; 88175; G0145 ==

== ENCOUNTER → 2024-06-04 | Outpatient (CLI) | payer OTHER, SELFPAY ==
--- NOTE | 2024-06-04 13:09 | US_ITS ---
INDICATION: bleeding, long, heavy periods x 1 month EXAMINATION: Ultrasound US Pelvis Non OB Complete With Transvaginal Imaging COMPARISON: 05/03/2020 OB ultrasound. FINDINGS: 134 grayscale ultrasound images of the pelvis obtained both transabdominally and transvaginally. In addition dedicated ovarian color Doppler. UTERUS: Uterus measures : 10.0 x 6.1 x 5.9 cm. Endometrial thickness of 1.4 cm. Somewhat heterogeneous myometrium with dominant 1.8 cm anterior, hypoechoic, somewhat ill-defined intramural lesion, likely small uterine fibroid. Nabothian cysts. ADNEXA: Flow is documented to bilateral ovaries by color Doppler. Bilateral ovarian anechoic lesions measuring up to 1.9 cm on the left and 2.3 cm on the right consistent with ovarian cysts. No significant free fluid. US/Pelvic w/ Transvaginal IMPRESSION: Bilateral dominant cysts measuring up to 2.3 cm on the right. Heterogeneous myometrium with small 2 cm anterior intramural uterine fibroid. Electronically Signed: Devon Zaldivar MD at 0:01 EDT ,
== END | disposition home or self-care (01) ==
PROVIDERS: PCP Student in an Organized Health Care Education/Training Program; Referring Provider Nurse Practitioner Women's Health; Visit Provider Nurse Practitioner Women's Health
DX: N92.1 Excessive and frequent menstruation with irregular cycle (principal)
CPT/HCPCS: 76830; 76856